=== PATIENT | female | born 1965 | race Caucasian/White ===

== ENCOUNTER 2016-08-23 12:03 | Day surgery (SDC) | payer BC ==
--- NOTE | 2016-08-23 13:20 | US ---
EXAMINATION TYPE: US thyroid st tissue head/neck DATE OF EXAM: 08/23/2016 1:05 PM COMPARISON: CT neck June 05, 2016. Prior thyroid ultrasound August 25, 2013 CLINICAL HISTORY: Swelling/ Mass of Neck R22.1. Patient states feeling a palpable lump on right later al anterior neck. Patient states she feels it behind a lymph node. TECHNOLOGIST IMPRESSION: Area of lump scanned. Normal appearing lymph nodes seen, largest - 0.4 cm. No prominent masses or lesions identified. Area of palpable lump shows 4 mm oval well-circumscribed lesion favoring benign lymph node but too sm all to definitively characterize. No worrisome solid or cystic mass or abnormal fluid collection is s een. IMPRESSION: As above
== END 2016-08-23 13:00 | disposition home or self-care (01) ==
LOC: RADPROMAIN 12:03
PROVIDERS: ATTEND Otolaryngology
DX: R22.1 Localized swelling, mass and lump, neck (principal)
CPT/HCPCS: 76536

== ENCOUNTER → 2016-11-30 | Outpatient (CLI) | payer BC ==
--- NOTE | 2016-11-30 13:49 | CT ---
EXAMINATION TYPE: CT soft tissue neck w con DATE OF EXAM: 11/30/2016 1:17 PM COMPARISON: NONE HISTORY: Swelling to anterior neck bilaterally. CT DLP: 521.00 mGycm Automated exposure control for dose reduction was used. CONTRAST: CT scan of the neck is performed following with IV Contrast, patient injected with 100 mL of Omnipaqu e 300. Axial images are obtained, coronal and sagittal reformatted images are reviewed. FINDINGS: Limited CT sections are obtained the lung apices. Emphysematous changes are noted. CT neck: The torus tubarius and fossa of Rosenmuller are normal. 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 Parana elder sinuses and mastoid air cells are clear. Parotid glands appear normal and symmetrical. Submandibu lar glands, are normal. Parapharyngeal spaces are normal. No lymphadenopathy is identified. No findin gs are identified which would suggest sialolithiasis however this is suboptimal and a contrast enhanc ed examination. The hypopharynx appears within normal limits. Vocal cord level appear symmetrical. Th yroid as visualized is normal. Cervical esophagus within the [id number] appears unremarkable. Osse ous structures are normal. The right vertebral artery is dominant. Evaluation of the mandible and max illa adjacent to the teeth is suboptimal due to adjacent hardware. IMPRESSIONS: Unremarkable soft tissue CT scan of the neck.
== END | disposition home or self-care (01) ==
LOC: RADCTMAIN 12:46
PROVIDERS: ATTEND Otolaryngology
DX: R22.1 Localized swelling, mass and lump, neck (principal)
CPT/HCPCS: 70491; Q9967

== ENCOUNTER → 2017-01-01 | Outpatient (CLI) | payer BC ==
--- NOTE | 2017-01-02 07:49 | MR ---
EXAMINATION TYPE: MR iac wo/w con DATE OF EXAM: 01/01/2017 COMPARISON: NONE HISTORY: hearing loss TECHNIQUE: Multiplanar, multisequence images of the brain and brainstem is performed without and with IV contras t, utilizing 12 mL intravenous MultiHance . FINDINGS: Midline structures are unremarkable. There is a normal craniocervical junction. Echoplanar diffusion imaging is normal. There are normal vascular flow voids. The orbits are normal. High-resolution imaging through the posterior fossa exquisitely demonstrates the seventh 8th nerve co mplexes without evidence of a CP angle mass lesion or intracanalicular acoustic schwannoma. No focal lesion, mass effect or midline shift is seen. I do not see evidence of intracranial blood. Following intravenous administration of gadolinium, I do not see evidence of abnormal enhancement. Sp ecifically, I do not see evidence of intracanalicular enhancement. IMPRESSION: I DO NOT SEE EVIDENCE OF A CP ANGLE MASS LESION OR INTRACANALICULAR ACOUSTIC SCHWANNOMA.
== END | disposition home or self-care (01) ==
LOC: RADMRIMAIN 15:49
PROVIDERS: ATTEND Otolaryngology
DX: H81.02 Meniere's disease, left ear (principal); H90.3 Sensorineural hearing loss, bilateral; H93.13 Tinnitus, bilateral
CPT/HCPCS: 70553; A9577

== ENCOUNTER → 2018-03-03 | Outpatient (CLI) | payer BC ==
--- NOTE | 2018-03-04 14:02 | MM ---
Reason for exam: screening (asymptomatic). Last mammogram was performed 1 year and 10 months ago. History: Benign left mammotome panel of the left breast, September 17, 2008. Benign right mammotome panel of the right breast, September 17, 2008. Benign cyst aspiration of the right breast, August 30, 1997. Took hormonal contraceptives for 10 years. Physical Findings: A clinical breast exam by your physician is recommended on an annual basis and results should be correlated with mammographic findings. MG 3D Screening Mammo W/Cad Bilateral CC and MLO view(s) were taken. Prior study comparison: May 07, 2016, bilateral MG 3d screening mammo w/cad. April 05, 2015, right breast MG 3d work up w/cad RT. The breast tissue is heterogeneously dense. This may lower the sensitivity of mammography. No significant changes when compared with prior studies. ASSESSMENT: Benign, BI-RAD 2 RECOMMENDATION: Routine screening mammogram of both breasts in 1 year.
== END | disposition home or self-care (01) ==
LOC: RADMAMWWP 13:20
PROVIDERS: ATTEND Family Medicine
DX: Z12.31 Encounter for screening mammogram for malignant neoplasm of breast (principal)
CPT/HCPCS: 77063; 77067

== ENCOUNTER → 2018-03-10 | Outpatient (CLI) | payer BC ==
--- NOTE | 2018-03-10 15:12 | FL ---
EXAMINATION TYPE: FL sialography DATE OF EXAM: 03/10/2018 HISTORY: K11.5 Sialolithiasis Comparison: None. Fluoroscopic time:1:58 fluoro time. Multiple attempts were made at localizing the opening of Katherin's duct bilaterally all of which prov ed unsuccessful. IMPRESSION: 1. Unsuccessful sialography of [place]'s duct.
== END | disposition home or self-care (01) ==
LOC: RADFLWHC 03-03 12:39
PROVIDERS: ATTEND Otolaryngology
DX: K11.5 Sialolithiasis (principal)
CPT/HCPCS: 70100; 70390

== ENCOUNTER → 2019-05-13 | Outpatient (CLI) | payer OTHER ==
--- NOTE | 2019-05-14 12:00 | MM ---
Reason for exam: screening (asymptomatic). Last mammogram was performed 1 year and 2 months ago. History: Benign left mammotome panel of the left breast, September 17, 2008. Benign right mammotome panel of the right breast, September 17, 2008. Benign cyst aspiration of the right breast, August 30, 1997. Took hormonal contraceptives for 10 years. Physical Findings: A clinical breast exam by your physician is recommended on an annual basis and results should be correlated with mammographic findings. MG Screening Mammo w CAD Bilateral CC and MLO view(s) were taken. Prior study comparison: March 03, 2018, bilateral MG 3d screening mammo w/cad. May 07, 2016, bilateral MG 3d screening mammo w/cad. The breast tissue is heterogeneously dense. This may lower the sensitivity of mammography. No suspicious abnormality. Bilateral biopsy markers noted. No significant changes when compared with prior studies. ASSESSMENT: Benign, BI-RAD 2 RECOMMENDATION: Routine screening mammogram of both breasts in 1 year.
== END | disposition home or self-care (01) ==
LOC: RADMAMWWP 09:42
PROVIDERS: ATTEND Family Medicine
DX: Z12.31 Encounter for screening mammogram for malignant neoplasm of breast (principal)
CPT/HCPCS: 77067

== ENCOUNTER → 2020-08-22 | Outpatient (CLI) | payer OTHER ==
--- NOTE | 2020-08-24 11:46 | MM ---
Reason for exam: screening (asymptomatic). Last mammogram was performed 1 year and 3 months ago. History: Patient is postmenopausal. Benign left mammotome panel of the left breast, September 17, 2008. Benign right mammotome panel of the right breast, September 17, 2008. Benign cyst aspiration of the right breast, August 30, 1997. Took hormonal contraceptives for 10 years. Physical Findings: A clinical breast exam by your physician is recommended on an annual basis and results should be correlated with mammographic findings. MG 3D Screening Mammo W/Cad Bilateral CC and MLO view(s) were taken. Prior study comparison: May 13, 2019, bilateral MG screening mammo w CAD. March 03, 2018, bilateral MG 3d screening mammo w/cad. Previous mammotome biopsy in the left breast. No significant changes when compared with prior studies. ASSESSMENT: Benign, BI-RAD 2 RECOMMENDATION: Routine screening mammogram of both breasts in 1 year.
== END ==
LOC: RADMAMWWP 13:12
PROVIDERS: ATTEND Family Medicine
DX: Z12.31 Encounter for screening mammogram for malignant neoplasm of breast (principal); Z78.0 Asymptomatic menopausal state
CPT/HCPCS: 77063; 77067

== ENCOUNTER → 2022-01-25 | Outpatient (CLI) | payer OTHER ==
--- NOTE | 2022-01-26 06:43 | CT ---
EXAMINATION TYPE: CT soft tissue neck wo con DATE OF EXAM: 01/25/2022 COMPARISON: CT neck November 30, 2016 HISTORY: Inflammatory conditions of the jaw, pre op CT DLP: 284 mGycm. Automated Exposure Control for Dose Reduction was Utilized. FINDINGS: Lack of IV contrast is noted to lower sensitivity for evaluation for subtle mucosal lesions and neck adenopathy. Airway: Mild underlying emphysematous change in the visualized lungs redemonstrated. Airway otherwise grossly patent Parotid/submandibular glands: No gross abnormality seen. Osseous Structures: Nasal septum deviated to left of midline similar to prior. There is some loss of normal cervical curvature with mild disc space narrowing C5-C6 and C6-C7 levels. There is prominent a nterior spurring C6-C7 level redemonstrated. Other: Partial visualization of right-sided PICC line on current study. There is small mucous retention cyst or polyp in the posterior right sphenoid sinus axial image 73 no w seen. Mild calcified plaque bilateral carotid bulb level. The mandible now shows lucent destructive lesion centered at the symphysis just left of midline axial image 44 and coronal image 8 extending through the nearly entire horizontal ramus with involvement t hrough the dental roots bilaterally. Multiple cavitary fillings and crowns in the maxillary and anay bular teeth bilaterally are noted with streak artifact. No definitive abnormal greater than 1 cm drea cent or neck adenopathy is seen. IMPRESSION: Destructive central mandibular lesion as detailed above. No definitive abnormal adenopath y seen. Airway remains patent.
== END | disposition home or self-care (01) ==
LOC: RADCTMAIN 16:47
PROVIDERS: ATTEND Otolaryngology
DX: M48.02 Spinal stenosis, cervical region (principal); J34.2 Deviated nasal septum; J43.9 Emphysema, unspecified
CPT/HCPCS: 70490

== ENCOUNTER → 2022-11-27 | Outpatient (CLI) | payer OTHER ==
--- NOTE | 2022-11-27 22:17 | BD ---
EXAMINATION TYPE: Axial Bone Density DATE OF EXAM: 11/27/2022 CLINICAL HISTORY: 57 years old Female. ICD-10 CODE: N959 POSTTata MCKEONO Height: 62 Weight: 149.2 FRAX RISK QUESTIONS: Alcohol (3 or more units per day): no Family History (Parent hip fracture): no Glucocorticoids (More than 3mos): no History of Fracture in Adulthood: no Secondary Osteoporosis: 1. Type 1 Diabetes: no 2. Hyperthyroidism: no 3. Menopause before 45: yes 4. Malnutrition: no 5. Chronic liver disease: no Rheumatoid Arthritis: no Current Tobacco Use: yes RISK FACTORS HISTORY OF: Hip Fracture (Right/Left): no Spine Fracture: no History of Wrist Fracture: no Surgery to Spine/Hip(right/left)/Wrist (right/left): Lumbar Spine Fusion at each level When: 2010 Family History of Osteoporosis: Maternal Grandmother Active: no Diet low in dairy products/other sources of calcium: no Postmenopausal woman: no Take estrogen and/or progesterone medications: no Lost more than 2 inches in height since high school: yes Frequent falls: no Poor Health: no Hyperparathyroidism: no Adrenal Insufficiency: no MEDICATIONS: Prednisone or other steroids: no Thyroid Medications: no Osteoporosis Medications: no Additional Medications: Pepcid, Vit D, Fish Oil Additional History: EXAM MEASUREMENTS: Bone mineral density about the R hip (g/cm2): 0.902 Bone mineral density about the L hip (g/cm2): 0.818 T Score values are as follows: -----R Neck: -1.1 -----L Neck: -1.6 -----R Total: -0.8 -----L Total: -1.5 Z Score values are as follows: -----R Neck: 0.0 -----L Neck: -0.5 -----R Total: -0.1 -----L Total: -0.7 Baseline Study Bone mineral density about the R Wrist (g/cm2): 0.635 T Score values are as follows: -----Dist. R+U: -1.2 -----Prox. R+U: -0.6 -----Radius total: -0.7 Z Score values are as follows: -----Dist. R+U: -0.5 -----Prox. R+U: 0.2 -----Radius total: 0.1 Baseline Study FRAX%s: The graph provided illustrates a 8.0% chance for a major osteoporotic fx and a 1.2% chance fo r the hips probability for fx in 10 years time. IMPRESSION: Osteopenia (T Score between -2.5 and -1). There is slightly increased risk of fracture and the patient may be considered for treatment. Re-Screen 2-5 years. NOTE: T-SCORE=SD OF THE YOUNG ADULT MEAN.
--- NOTE | 2022-11-28 20:16 | MM ---
Reason for Exam: Screening (asymptomatic). Last mammogram was performed 2 year(s) and 3 month(s) ago. Patient History: Menarche at age 11. First Full-Term at age 23. Hysterectomy at age 30. Postmenopausal. Patient used Hormonal Contraceptives for 10 years. 09/17/2008, Benign Core Biopsy on the left side. 09/17/2008, Benign Core Biopsy on the right side. 08/30/1997, Benign Cyst Aspiration on the right side. Risk Values: Moon 5 year model risk: 1.8%. NCI Lifetime model risk: 10.2%. Prior Study Comparison: 03/03/2018 Bilateral Screening Mammogram, [facility]. 05/13/2019 Bilateral Screening Mammogram, [facility]. 08/22/2020 Bilateral Screening Mammogram, [facility]. Tissue Density: The breast tissue is heterogeneously dense. This may lower the sensitivity of mammography. Findings: Analyzed By CAD. Regional punctate calcifications are redemonstrated. Areas of asymmetric density left CC view remain unchanged and show no persisting abnormality on 3-D images. A microclip on either side from prior biopsies. There is no suspicious group of microcalcifications or new suspicious mass in either breast. Overall Assessment: Benign, BI-RAD 2 Management: Screening Mammogram of both breasts in 1 year. . Patient should continue monthly self-breast exams. A clinical breast exam by your physician is recommended on an annual basis. This exam should not preclude additional follow-up of suspicious palpable abnormalities. Note on Moon scores and lifetime risk: 1. A Moon score greater than 3% is considered moderate risk. If this is the case, consider specialist referral to assess eligibility for a risk reducing agent. 2. If overall lifetime risk for the development of breast cancer is 20% or higher, the patient may qualify for future screening with alternating mammogram and breast MRI. Electronically signed and approved by: Stephanie Bailey M.D. Radiologist
== END | disposition home or self-care (01) ==
LOC: RADMAMWWP 12:38
PROVIDERS: ATTEND Student in an Organized Health Care Education/Training Program
DX: Z12.31 Encounter for screening mammogram for malignant neoplasm of breast (principal); M85.89 Other specified disorders of bone density and structure, multiple sites; Z78.0 Asymptomatic menopausal state
CPT/HCPCS: 77063; 77067; 77080

== ENCOUNTER → 2023-03-13 | Outpatient (CLI) | payer OTHER ==
[2023-03-13 14:32] VITALS: BP 120/80; PULSE 92; RESP 16; TEMP 97
--- NOTE | 2023-03-13 14:43 | P.PAINPG ---
PQRS Measure Charge Sheet Comment: HISTORY OF PRESENT ILLNESS: 57 yr old female as a referral from Dr Cullen presents today w severe and chronic jaw & neck pain x 6 yrs secondary to DDD, spondylosis and facet arthropathy without myelopathy for evaluation. Pt states pain level is provoked at 6 /10 in intensity, constant, localized in the jaw, throbbing in character w shooting pain towards the chin. Pain is provoked by any movement. Pain is alleviated by medications (Percocet, Neurontin), repositioning and rest. PMH: OA, Hypothyroid Disorder, Diverticulitis, Meniere's disease, anxiety PSH: L2-L5 Laminectomy w Fusion (2016), Bowel Resection, Hernia Repair, Hysterectomy, Breast Biopsy, R Shoulder Surgery, Jaw Surgery SH: Daily tobacco use, No ETOH abuse, No illicit drug use FH: Mo- Lymphoma All: See list Meds: See list REVIEW OF ORGAN SYSTEMS: CONSTITUTIONAL: No fevers or chills. No recent weight loss. NEUROLOGICAL: + numbness and tingling along the distal extremities. No seizure disorders or headaches. MUSCULOSKELETAL: + pain PSYCHIATRIC: Denies current depression or suicidal thoughts. Physical Examinations : Constitutional : Cooperative , not in acute distress . Neurologic : Cranial nerve II to XII intact. No focal neurological deficits. Psychiatric : alert & oriented x 3. Matching mood & appropriate affect. Judgment & insight intact. Musculoskeletal : Cervical Spine Motor strength in the deltoid and biceps: Normal right side. Normal Left side Motor strength biceps and the wrist extensors: Normal right side . Normal left side Motor strength in the triceps muscle: Normal right side. Normal left side Deep tendon reflexes: Normal at the biceps. Normal at Brachioradialis. Normal at triceps Vertebral body tenderness to deep palpation over Cervical facet loading test: positive bilaterally Spurling test: positive bilaterally Neck distraction test: positive bilaterally Sulaiman sign: positive bilaterally Lumbar spine Motor strength lower extremities ,thigh and legs 5/5 Right side , 5/5 Left side Deep tendon reflexes : Normal Knee Jerk. Normal Ankle Jerk Vertebral body tenderness over Ahmadi Test positive Lumbar facet Loading Test: positive R ight / positive Left Range of motion of the lumbar spine Flexion 30 degrees, extension 10 degrees Straight Leg Raise test: Left/ Right positive at degree Carolina test: positive right / positive left. Severe tenderness over the Sacroiliac joint on the Right / Left sides Gaenslen test: positive bilaterally Seated flexion test: positive bilaterally. Sacral spine : Severe tenderness over the Sacroiliac joint: right side / left side Range of motion: Flexion of the lumbar spine <60 degrees Range of motion: Extension of the lumbar spine <20 degrees Gaenslen's Test positive Manuel's Test positive Carolina test: positive right side / left side Thigh Thrust Test Sacral Thrust Test Imaging: X-rays cervical spine from 11/22/16 reviewed Assessment/ Plan : Cervical DDD Pt could benefit from follow up w Oral Surgery but does not appear to be interested at this time Will followup w physicians on a list she received from Dr Cullen's office. All questions answered. I have spent greater than 30 minutes on patient care today. Dr Fritz was available by phone for the evaluation of this patient. The time was used to review the medical records including relevant urine studies and Prescription history (MAPs), review of the available imaging, evaluation and examination of the patient, coordination of care with the medical staff and if applicable referring physicians, as well as creation of the medical record PQRS Narrative: Smoking Status Current every day smoker Home Medications: Ambulatory Orders Gabapentin [Neurontin] 600 mg PO HS 01/26/14 LORazepam [Ativan] 1 mg PO BID 08/15/16 Azithromycin [Zithromax Z-pack (6 tabs)] 0 mg PO DIRECTED #1 pack 04/12/17 Famotidine [Pepcid] 20 mg PO BID #28 tablet 04/12/17 hydrOXYzine HCL [Atarax] 25 mg PO TID PRN #15 tab 04/12/17 oxyCODONE-APAP 10-325MG [Percocet 10-325 mg] 1 tab PO TID PRN 04/12/17 Controlled Substance Measures - Controlled Substance Measures Is patient prescribed a controlled substance at discharge?: No
== END ==
LOC: PNWHC3 13:22
PROVIDERS: ATTEND Specialist
DX: M51.36 Other intervertebral disc degeneration, lumbar region (principal); M50.30 Other cervical disc degeneration, unspecified cervical region; M19.90 Unspecified osteoarthritis, unspecified site; E07.9 Disorder of thyroid, unspecified; F17.200 Nicotine dependence, unspecified, uncomplicated; F41.9 Anxiety disorder, unspecified; Z87.19 Personal history of other diseases of the digestive system; Z86.19 Personal history of other infectious and parasitic diseases; Z88.0 Allergy status to penicillin; Z88.8 Allergy status to other drugs, medicaments and biological substances; Z88.5 Allergy status to narcotic agent; Z88.2 Allergy status to sulfonamides
CPT/HCPCS: 99211

== ENCOUNTER → 2023-05-15 | Outpatient (CLI) | payer OTHER ==
--- NOTE | 2023-05-15 14:14 | P.PAINPG ---
PQRS Measure Charge Sheet Comment: HISTORY OF PRESENT ILLNESS: A 57 yr old female presents today w severe and chronic jaw pain x 6 yrs secondary to mandible fracture and metal hardware for evaluation. Pt states pain level is provoked at 6 /10 in intensity, constant, localized in the jaw, throbbing in character w shooting pain towards the chin. Pain is provoked by any movement. Pain is alleviated by medications, repositioning and rest. Interventional procedures include Jaw Fixation (2017) Medications include Percocet 10/325mg #120, Neurontin REVIEW OF ORGAN SYSTEMS: CONSTITUTIONAL: No fevers or chills. No recent weight loss. NEUROLOGICAL: + numbness and tingling along the distal extremities. No seizure disorders or headaches. MUSCULOSKELETAL: + pain PSYCHIATRIC: Denies current depression or suicidal thoughts. Physical Examinations : Constitutional : Cooperative , not in acute distress . Neurologic : Cranial nerve II to XII intact. No focal neurological deficits. Psychiatric : alert & oriented x 3. Matching mood & appropriate affect. Judgment & insight intact. Musculoskeletal : Cervical Spine Motor strength in the deltoid and biceps: Normal right side. Normal Left side Motor strength biceps and the wrist extensors: Normal right side . Normal left side Motor strength in the triceps muscle: Normal right side. Normal left side Deep tendon reflexes: Normal at the biceps. Normal at Brachioradialis. Normal at triceps Vertebral body tenderness to deep palpation over Cervical facet loading test: positive bilaterally Spurling test: positive bilaterally Neck distraction test: positive bilaterally Sulaiman sign: positive bilaterally Lumbar spine Motor strength lower extremities ,thigh and legs 5/5 Right side , 5/5 Left side Deep tendon reflexes : Normal Knee Jerk. Normal Ankle Jerk Vertebral body tenderness over Ahmadi Test positive Lumbar facet Loading Test: positive Right / positive Left Range of motion of the lumbar spine Flexion 30 degrees, extension 10 degrees Straight Leg Raise test: Left/ Right positive at degree Carolina test: positive right / positive left. Severe tenderness over the Sacroiliac joint on the Right / Left sides Gaenslen test: positive bilaterally Seated flexion test: positive bilaterally. Sacral spine : Severe tenderness over the Sacroiliac joint: right side / left side Range of motion: Flexion of the lumbar spine <60 degrees Range of motion: Extension of the lumbar spine <20 degrees Gaenslen's Test positive Manuel's Test positive Carolina test: positive right side / left side Thigh Thrust Test Sacral Thrust Test Imaging: X-rays cervical spine from 11/22/16 reviewed Assessment/ Plan : Chronic Jaw Pain secondary to Mandible Fixation due to fracture Pt has followed up w the only oral surgeon on the area, Dr Sow for a second opinion and her oral surgeon is located at [facility] in [place], > [address] for pt. Recommendation of medication management at this time for chronic pain syndrome. Percocet 10/325mg #120 w 1 RF. Use, side effects, adverse reactions and safe storage discussed. Opiate and narcotic agreement on file. All questions answered. I have spent greater than 30 minutes on patient care today. Dr Fritz was available by phone for the evaluation of this patient. The time was used to review the medical records including relevant urine studies and Prescription history (MAPs), review of the available imaging, evaluation and examination of the patient, coordination of care with the medical staff and if applicable referring physicians, as well as creation of the medical record PQRS Narrative: Smoking Status Current every day smoker Home Medications: Ambulatory Orders Gabapentin [Neurontin] 600 mg PO HS 01/26/14 LORazepam [Ativan] 1 mg PO BID 08/15/16 Azithromycin [Zithromax Z-pack (6 tabs)] 0 mg PO DIRECTED #1 pack 04/12/17 Famotidine [Pepcid] 20 mg PO BID #28 tablet 04/12/17 hydrOXYzine HCL [Atarax] 25 mg PO TID PRN #15 tab 04/12/17 oxyCODONE-APAP 10-325MG [Percocet 10-325 mg] 1 tab PO QID PRN 30 Days #120 tab 03/14/23 Controlled Substance Measures - Controlled Substance Measures Is patient prescribed a controlled substance at discharge?: Yes When asked, does pt state using other controlled substances?: Yes If prescribed controlled substance>3 days was MAPS reviewed?: Yes
[2023-05-15 14:41] VITALS: BP 127/86; PULSE 55; RESP 15; TEMP 98.8
== END ==
LOC: PNWHC3 13:41
PROVIDERS: ATTEND Specialist
DX: Z51.81 Encounter for therapeutic drug level monitoring (principal); G89.29 Other chronic pain; S02.609A Fracture of mandible, unspecified, initial encounter for closed fracture; F17.200 Nicotine dependence, unspecified, uncomplicated; Z88.0 Allergy status to penicillin; Z88.8 Allergy status to other drugs, medicaments and biological substances; Z88.5 Allergy status to narcotic agent; Z88.2 Allergy status to sulfonamides; X58.XXXA Exposure to other specified factors, initial encounter
CPT/HCPCS: 80307; G0463; 99211

== ENCOUNTER → 2023-07-10 | Outpatient (CLI) | payer OTHER ==
[2023-07-10 13:22] VITALS: BP 97/64; PULSE 86; RESP 15; TEMP 97.2
--- NOTE | 2023-07-10 14:44 | P.PAINPG ---
PQRS Measure Charge Sheet Comment: HISTORY OF PRESENT ILLNESS: A 58 yr old female presents today w severe and chronic jaw pain x 6 yrs secondary to mandible fracture and metal hardware for evaluation. Pt states pain level is provoked at 6 /10 in intensity, constant, localized in the jaw, crushing in character w shooting pain towards the chin. Pain is provoked by any movement. Pain is alleviated by medications, repositioning and rest. Interventional procedures include Jaw Fixation (2017) Medications include Percocet 10/325mg #120, Neurontin REVIEW OF ORGAN SYSTEMS: CONSTITUTIONAL: No fevers or chills. No recent weight loss. NEUROLOGICAL: + numbness and tingling along the distal extremities. No seizure disorders or headaches. MUSCULOSKELETAL: + pain PSYCHIATRIC: Denies current depression or suicidal thoughts. Physical Examinations : Constitutional : Cooperative , not in acute distress . Neurologic : Cranial nerve II to XII intact. No focal neurological deficits. Psychiatric : alert & oriented x 3. Matching mood & appropriate affect. Judgment & insight intact. Musculoskeletal : Cervical Spine Motor strength in the deltoid and biceps: Normal right side. Normal Left side Motor strength biceps and the wrist extensors: Normal right side . Normal left side Motor strength in the triceps muscle: Normal right side. Normal left side Deep tendon reflexes: Normal at the biceps. Normal at Brachioradialis. Normal at triceps Vertebral body tenderness to deep palpation over Cervical facet loading test: positive bilaterally Spurling test: positive bilaterally Neck distraction test: positive bilaterally Sulaiman sign: positive bilaterally Lumbar spine Motor strength lower extremities ,thigh and legs 5/5 Right side , 5/5 Left side Deep tendon reflexes : Normal Knee Jerk. Normal Ankle Jerk Vertebral body tenderness over Ahmadi Test positive Lumbar facet Loading Test: positive Right / positive Left Range of motion of the lumbar spine Flexion 30 degrees, extension 10 degrees Straight Leg Raise test: Left/ Right positive at degree Carolina test: positive right / positive left. Severe tenderness over the Sacroiliac joint on the Right / Left sides Gaenslen test: positive bilaterally Seated flexion test: positive bilaterally. Sacral spine : Severe tenderness over the Sacroiliac joint: right side / left side Range of motion: Flexion of the lumbar spine <60 degrees Range of motion: Extension of the lumbar spine <20 degrees Gaenslen's Test positive Manuel's Test positive Carolina test: positive right side / left side Thigh Thrust Test Sacral Thrust Test Imaging: X-rays cervical spine from 11/22/16 reviewed Assessment/ Plan : Chronic Jaw Pain secondary to Mandible Fixation due to fracture Recommendation of medication management at this time for chronic pain syndrome. Percocet 10/325mg #120 w 1 RF. Use, side effects, adverse reactions and safe storage discussed. Opiate and narcotic agreement on file. All questions an swered. I have spent greater than 30 minutes on patient care today. Dr Fritz was available by phone for the evaluation of this patient. The time was used to review the medical records including relevant urine studies and Prescription history (MAPs), review of the available imaging, evaluation and examination of the patient, coordination of care with the medical staff and if applicable referring physicians, as well as creation of the medical record PQRS Narrative: Smoking Status Current every day smoker Hx Alcohol Use (MH) No Home Medications: Ambulatory Orders Gabapentin [Neurontin] 600 mg PO HS 01/26/14 LORazepam [Ativan] 1 mg PO BID 08/15/16 Azithromycin [Zithromax Z-pack (6 tabs)] 0 mg PO DIRECTED #1 pack 04/12/17 Famotidine [Pepcid] 20 mg PO BID #28 tablet 04/12/17 hydrOXYzine HCL [Atarax] 25 mg PO TID PRN #15 tab 04/12/17 oxyCODONE-APAP 10-325MG [Percocet 10-325 mg] 1 tab PO Q6HR PRN 30 Days #120 tab 05/15/23 oxyCODONE-APAP 10-325MG [Percocet 10-325 mg] 1 tab PO QID PRN 30 Days #120 tab 05/15/23 Controlled Substance Measures - Controlled Substance Measures Is patient prescribed a controlled substance at discharge?: Yes When asked, does pt state using other controlled substances?: Yes If prescribed controlled substance>3 days was MAPS reviewed?: Yes
== END ==
LOC: PNWHC3 12:27
PROVIDERS: ATTEND Anesthesiology
DX: S02.609A Fracture of mandible, unspecified, initial encounter for closed fracture (principal); R68.84 Jaw pain; F17.200 Nicotine dependence, unspecified, uncomplicated; Z88.0 Allergy status to penicillin; Z88.8 Allergy status to other drugs, medicaments and biological substances; Z88.2 Allergy status to sulfonamides; Z88.1 Allergy status to other antibiotic agents
CPT/HCPCS: 99211

== ENCOUNTER → 2023-08-28 | Outpatient (CLI) | payer OTHER ==
--- NOTE | 2023-08-28 13:43 | CT ---
EXAMINATION TYPE: CT facial bones wo con CT DLP: 583 mGycm, Automated exposure control for dose reduction was used. DATE OF EXAM: 08/28/2023 1:30 PM COMPARISON: CT neck 07/23/2022. CLINICAL INDICATION:Female, 58 years old with history of JAW PAIN R68.84; PHH, left sided jaw pain TECHNIQUE: Multiple unenhanced axial CT images were obtained of the facial bones soft tissue and bone windows. Coronal, axial and sagittal reformatted images were also provided in soft tissue and bone windows and submitted for interpretation. Additional 3-D reformatted images were obtained on a [employer] workstation. FINDINGS: There is no evidence of fracture, subluxation, dislocation, or significant soft tissue swelling. Postsurgical changes of the mandible are again identified with scattered metallic foci noted within t he submental soft tissues, overall stable appearance. Hardware is intact. There is redemonstrated wayne encies involving the lower anterior teeth, not significantly changed in the interval. The orbital contents are unremarkable. The temporal-mandibular joints appear symmetric. The visualized portion of the paranasal sinuses appe ar clear. IMPRESSION: Stable exam demonstrating postsurgical changes of the mandible and periapical lucencies of the lower anterior disease. No evidence of soft tissue abscess.
== END | disposition home or self-care (01) ==
LOC: RADCTMAIN 13:07
DX: R68.84 Jaw pain (principal)
CPT/HCPCS: 70486

== ENCOUNTER → 2023-09-04 | Outpatient (CLI) | payer OTHER ==
[~2023-09-04] MED LIST: KETOROLAC 30 MG/ML 1 ML VIAL IM ONE
[2023-09-04 13:25] VITALS: BP 125/93; PULSE 84; RESP 16; TEMP 98.2
--- NOTE | 2023-09-11 10:46 | P.PAINPG ---
PQRS Measure Charge Sheet Comment: HISTORY OF PRESENT ILLNESS: A 58 yr old female presents today w severe and chronic jaw pain x 6 yrs secondary to mandible fracture and metal hardware for evaluation. Pt states pain level is provoked at 9 /10 in intensity, constant, localized in the jaw, crushing in character w shooting pain towards the chin. Pain is provoked by any movement. Pain is alleviated by medications, repositioning and rest. Pt feels intense pain and would like an injection today for pain relief. Interventional procedures include Jaw Fixation (2017) Medications include Percocet 10/325mg #120, Neurontin REVIEW OF ORGAN SYSTEMS: CONSTITUTIONAL: No fevers or chills. No recent weight loss. NEUROLOGICAL: + numbness and tingling along the distal extremities. No seizure disorders or headaches. MUSCULOSKELETAL: + pain PSYCHIATRIC: Denies current depression or suicidal thoughts. Physical Examinations : Constitutional : Cooperative , not in acute distress . Neurologic : Cranial nerve II to XII intact. No focal neurological deficits. Psychiatric : alert & oriented x 3. Matching mood & appropriate affect. Judgment & insight intact. Musculoskeletal : Cervical Spine Motor strength in the deltoid and biceps: Normal right side. Normal Left side Motor strength biceps and the wrist extensors: Normal right side . Normal left side Motor strength in the triceps muscle: Normal right side. Normal left side Deep tendon reflexes: Normal at the biceps. Normal at Brachioradialis. Normal at triceps Vertebral body tenderness to deep palpation over Cervical facet loading test: positive bilaterally Spurling test: positive bilaterally Neck distraction test: positive bilaterally Sulaiman sign: positive bilaterally Lumbar spine Motor strength lower extremities ,thigh and legs 5/5 Right side , 5/5 Left side Deep tendon reflexes : Normal Knee Jerk. Normal Ankle Jerk Vertebral body tenderness over Ahmadi Test positive Lumbar facet Loading Test: positive Right / positive Left Range of motion of the lumbar spine Flexion 30 degrees, extension 10 degrees Straight Leg Raise test: Left/ Right positive at degree Carolina test: positive right / positive left. Severe tenderness over the Sacroiliac joint on the Right / Left sides Gaenslen test: positive bilaterally Seated flexion test: positive bilat erally. 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 Percocet 10/325mg #120 w 1 RF. Use, side effects, adverse reactions and safe storage discussed. Opiate and narcotic agreement on file. UDS from 05/15/23 reviewed and consistent. All questions answered. I have spent greater than 30 minutes on patient care today. Dr Fritz was available by phone for the evaluation of this patient. The time was used to review the medical records including relevant urine studies and Prescription history (MAPs), review of the available imaging, evaluation and examination of the patient, coordination of care with the medical staff and if applicable referring physicians, as well as creation of the medical record PQRS Narrative: Smoking Status Current every day smoker Hx Alcohol Use (MH) No Home Medications: Ambulatory Orders Gabapentin [Neurontin] 600 mg PO HS 01/26/14 LORazepam [Ativan] 1 mg PO BID 08/15/16 Azithromycin [Zithromax Z-pack (6 tabs)] 0 mg PO DIRECTED #1 pack 04/12/17 Famotidine [Pepcid] 20 mg PO BID #28 tablet 04/12/17 hydrOXYzine HCL [Atarax] 25 mg PO TID PRN #15 tab 04/12/17 oxyCODONE-APAP 10-325MG [Percocet 10-325 mg] 1 tab PO Q6HR PRN 30 Days #120 tab 09/04/23 oxyCODONE-APAP 10-325MG [Percocet 10-325 mg] 1 tab PO QID PRN 30 Days #120 tab 09/04/23 Controlled Substance Measures - Controlled Substance Measures Is patient prescribed a controlled substance at discharge?: Yes When asked, does pt state using other controlled substances?: Yes If prescribed controlled substance>3 days was MAPS reviewed?: Yes
== END ==
LOC: PNWHC3 12:18
PROVIDERS: ATTEND Specialist
DX: M26.619 Adhesions and ankylosis of temporomandibular joint, unspecified side (principal); Z53.9 Procedure and treatment not carried out, unspecified reason
CPT/HCPCS: 99211

== ENCOUNTER → 2023-10-07 | Outpatient (CLI) | payer OTHER ==
--- NOTE | 2023-10-10 15:54 | CT ---
EXAMINATION TYPE: CT soft tissue neck w con DATE OF EXAM: 10/07/2023 COMPARISON: 07/23/2022 HISTORY: post-op jaw sx CT DLP: 274 mGycm CONTRAST: Patient injected with 100 mL of Isovue 300. TECHNIQUE: Axial images at 3 mm thick sections. Reconstructed images in the coronal plane and sagitt al plane are reviewed. FINDINGS: Limited CT sections are obtained the lung apices. The lung apices appear clear. CT neck: The torus tubarius and fossa of Rosenmuller are normal. Forensic Technician spaces are normal. Para nasal sinuses and mastoid air cells are clear. Parotid glands appear normal and symmetrical. Left submandibular gland appears normal. Right submandi bular gland may be surgically absent. Parapharyngeal spaces are normal. No suspicious adenopathy is evident. The hypopharynx appears within normal limits. Vocal cord level appear symmetrical. Thyroid as visualized is normal. Postsurgical changes are through the mandible. No suspicious erosions are evident. There is anterior vertebral body spurring C6-7. IMPRESSION: 1. Postsurgical changes within the mandible. No acute osseous abnormality.
== END | disposition home or self-care (01) ==
LOC: RADCTMAIN 12:25
PROVIDERS: ATTEND Otolaryngology
DX: M87.88 Other osteonecrosis, other site (principal); Z98.890 Other specified postprocedural states
CPT/HCPCS: 70491; Q9967

== ENCOUNTER → 2023-10-31 | Outpatient (CLI) | payer OTHER ==
[2023-10-31 13:08] VITALS: BP 127/85; PULSE 87; RESP 16
--- NOTE | 2023-10-31 14:52 | P.PAINPG ---
PQRS Measure Charge Sheet Comment: HISTORY OF PRESENT ILLNESS: A 58 yr old female presents today w severe and chronic jaw pain x 6 yrs secondary to mandible fracture and metal hardware for evaluation. Pt states pain level is provoked at 9 /10 in intensity, constant, localized in the jaw, crushing in character w shooting pain towards the chin. Pain is provoked by any movement. Pain is alleviated by medications, repositioning and rest. Pt feels intense pain and would like an injection today for pain relief. Interventional procedures include Jaw Fixation (2017) Medications include Percocet 10/325mg #120, Neurontin REVIEW OF ORGAN SYSTEMS: CONSTITUTIONAL: No fevers or chills. No recent weight loss. NEUROLOGICAL: + numbness and tingling along the distal extremities. No seizure disorders or headaches. MUSCULOSKELETAL: + pain PSYCHIATRIC: Denies current depression or suicidal thoughts. Physical Examinations : Constitutional : Cooperative , not in acute distress . Neurologic : Cranial nerve II to XII intact. No focal neurological deficits. Psychiatric : alert & oriented x 3. Matching mood & appropriate affect. Judgment & insight intact. Musculoskeletal : Cervical Spine Motor strength in the deltoid and biceps: Normal right side. Normal Left side Motor strength biceps and the wrist extensors: Normal right side . Normal left side Motor strength in the triceps muscle: Normal right side. Normal left side Deep tendon reflexes: Normal at the biceps. Normal at Brachioradialis. Normal at triceps Vertebral body tenderness to deep palpation over Cervical facet loading test: positive bilaterally Spurling test: positive bilaterally Neck distraction test: positive bilaterally Sulaiman sign: positive bilaterally Lumbar spine Motor strength lower extremities ,thigh and legs 5/5 Right side , 5/5 Left side Deep tendon reflexes : Normal Knee Jerk. Normal Ankle Jerk Vertebral body tenderness over Ahmadi Test positive Lumbar facet Loading Test: positive Right / positive Left Range of motion of the lumbar spine Flexion 30 degrees, extension 10 degrees Straight Leg Raise test: Left/ Right positive at degree [place] test: positive right / positive left. Severe tenderness over the Sacroiliac joint on the Right / Left sides Gaenslen test: positive bilaterally Seated flexion test: positive bilat erally. 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 Percocet 10/325mg #120 w 1 RF. Use, side effects, adverse reactions and safe storage discussed. Opiate and narcotic agreement on file. UDS from 05/15/23 reviewed and consistent. All questions answered. I have spent greater than 30 minutes on patient care today. Dr Fritz was available by phone for the evaluation of this patient. The time was used to review the medical records including relevant urine studies and Prescription history (MAPs), review of the available imaging, evaluation and examination of the patient, coordination of care with the medical staff and if applicable referring physicians, as well as creation of the medical record PQRS Narrative: Smoking Status Current every day smoker Hx Alcohol Use (MH) No Home Medications: Ambulatory Orders Gabapentin [Neurontin] 600 mg PO HS 01/26/14 LORazepam [Ativan] 1 mg PO BID 08/15/16 Azithromycin [Zithromax Z-pack (6 tabs)] 0 mg PO DIRECTED #1 pack 04/12/17 Famotidine [Pepcid] 20 mg PO BID #28 tablet 04/12/17 hydrOXYzine HCL [Atarax] 25 mg PO TID PRN #15 tab 04/12/17 oxyCODONE-APAP 10-325MG [Percocet 10-325 mg] 1 tab PO Q6HR PRN 30 Days #120 tab 10/31/23 oxyCODONE-APAP 10-325MG [Percocet 10-325 mg] 1 tab PO QID PRN 30 Days #120 tab 10/31/23 Controlled Substance Measures - Controlled Substance Measures Is patient prescribed a controlled substance at discharge?: Yes When asked, does pt state using other controlled substances?: Yes If prescribed controlled substance>3 days was MAPS reviewed?: Yes
== END ==
LOC: PNWHC3 12:21
PROVIDERS: ATTEND Specialist
DX: S02.609A Fracture of mandible, unspecified, initial encounter for closed fracture (principal); M26.609 Unspecified temporomandibular joint disorder, unspecified side; M47.816 Spondylosis without myelopathy or radiculopathy, lumbar region; G89.29 Other chronic pain; F17.200 Nicotine dependence, unspecified, uncomplicated; Z88.0 Allergy status to penicillin; Z88.8 Allergy status to other drugs, medicaments and biological substances; Z88.5 Allergy status to narcotic agent; Z88.2 Allergy status to sulfonamides; X58.XXXA Exposure to other specified factors, initial encounter
CPT/HCPCS: 99211

== ENCOUNTER → 2023-12-26 | Outpatient (CLI) | payer OTHER ==
[2023-12-26 13:27] VITALS: BP 125/93; PULSE 81; RESP 16
--- NOTE | 2023-12-26 14:16 | P.PAINPG ---
PQRS Measure Charge Sheet Comment: HISTORY OF PRESENT ILLNESS: A 58 yr old female presents today w severe and chronic jaw pain x 6 yrs secondary to mandible fracture and metal hardware for medication refills. Pt states pain level is provoked at 6 /10 in intensity, constant, localized in the jaw, crushing in character w shooting pain towards the chin. Pain is provoked by any movement. Pain is alleviated by medications, repositioning and rest. Interventional procedures include Jaw Fixation (2017) Medications include Percocet 10/325mg #120, Neurontin 300mg #90 REVIEW OF ORGAN SYSTEMS: CONSTITUTIONAL: No fevers or chills. No recent weight loss. NEUROLOGICAL: + numbness and tingling along the distal extremities. No seizure disorders or headaches. MUSCULOSKELETAL: + pain PSYCHIATRIC: Denies current depression or suicidal thoughts. Physical Examinations : Constitutional : Cooperative , not in acute distress . Neurologic : Cranial nerve II to XII intact. No focal neurological deficits. Psychiatric : alert & oriented x 3. Matching mood & appropriate affect. Judgment & insight intact. Musculoskeletal : Cervical Spine Motor strength in the deltoid and biceps: Normal right side. Normal Left side Motor strength biceps and the wrist extensors: Normal right side . Normal left side Motor strength in the triceps muscle: Normal right side. Normal left side Deep tendon reflexes: Normal at the biceps. Normal at Brachioradialis. Normal at triceps Vertebral body tenderness to deep palpation over Cervical facet loading test: positive bilaterally Spurling test: positive bilaterally Neck distraction test: positive bilaterally Sulaiman sign: positive bilaterally Lumbar spine Motor strength lower extremities ,thigh and legs 5/5 Right side , 5/5 Left side Deep tendon reflexes : Normal Knee Jerk. Normal Ankle Jerk Vertebral body tenderness over Ahmadi Test positive Lumbar facet Loading Test: positive Right / positive Left Range of motion of the lumbar spine Flexion 30 degrees, extension 10 degrees Straight Leg Raise test: Left/ Right positive at degree [place] test: positive right / positive left. Severe tenderness over the Sacroiliac joint on the Right / Left sides Gaenslen test: positive bilaterally Seated flexion test: positive bilaterally. 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 Percocet 10/325mg #120 w 1 RF. Use, side effects, adverse reactions and safe storage discussed. Opiate and narcotic agreement on file. UDS collected 12/26/23. All questions answered. I have spent greater than 30 minutes on patient care today. Dr Fritz was available by phone for the evaluation of this patient. The time was used to review the medical records including relevant urine studies and Prescription history (MAPs), review of the available imaging, evaluation and examination of the patient, coordination of care with the medical staff and if applicable referring physicians, as well as creation of the medical record PQRS Narrative: Smoking Status Current every day smoker Hx Alcohol Use (MH) No Home Medications: Ambulatory Orders Gabapentin [Neurontin] 600 mg PO HS 01/26/14 LORazepam [Ativan] 1 mg PO BID 08/15/16 Azithromycin [Zithromax Z-pack (6 tabs)] 0 mg PO DIRECTED #1 pack 04/12/17 Famotidine [Pepcid] 20 mg PO BID #28 tablet 04/12/17 hydrOXYzine HCL [Atarax] 25 mg PO TID PRN #15 tab 04/12/17 oxyCODONE-APAP 10-325MG [Percocet 10-325 mg] 1 tab PO Q6HR PRN 30 Days #120 tab 12/26/23 oxyCODONE-APAP 10-325MG [Percocet 10-325 mg] 1 tab PO QID PRN 30 Days #120 tab 12/26/23 Controlled Substance Measures - Controlled Substance Measures Is patient prescribed a controlled substance at discharge?: Yes When asked, does pt state using other controlled substances?: No If prescribed controlled substance>3 days was MAPS reviewed?: Yes
== END ==
LOC: PNWHC3 12:36
PROVIDERS: ATTEND Specialist
DX: S02.600A Fracture of unspecified part of body of mandible, unspecified side, initial encounter for closed fracture (principal); M26.609 Unspecified temporomandibular joint disorder, unspecified side; F17.200 Nicotine dependence, unspecified, uncomplicated; Z88.2 Allergy status to sulfonamides; Z88.0 Allergy status to penicillin; Z88.8 Allergy status to other drugs, medicaments and biological substances; Z88.5 Allergy status to narcotic agent; X58.XXXA Exposure to other specified factors, initial encounter
CPT/HCPCS: 99211

== ENCOUNTER → 2024-02-20 | Outpatient (CLI) | payer OTHER ==
[2024-02-20 13:17] VITALS: BP 131/86; PULSE 72; RESP 16
--- NOTE | 2024-02-20 14:15 | P.PAINPG ---
PQRS Measure Charge Sheet Comment: HISTORY OF PRESENT ILLNESS: A 58 yr old female presents today w severe and chronic jaw pain x 6 yrs secondary to mandible fracture and metal hardware for medication refills. Pt states pain level is provoked at 6 /10 in intensity, constant, localized in the jaw, crushing in character w shooting pain towards the chin. Pain is provoked by any movement. Pain is alleviated by medications, repositioning and rest. Pt states she is scheduled for jaw surgery next month in [place] by an oralmaxillofacial surgeon who has been made aware she has an established narcotic/ opiate agreement. Interventional procedures include Jaw Fixation (2017) Medications include Percocet 10/325mg #120, Neurontin 300mg #90 REVIEW OF ORGAN SYSTEMS: CONSTITUTIONAL: No fevers or chills. No recent weight loss. NEUROLOGICAL: + numbness and tingling along the distal extremities. No seizure disorders or headaches. MUSCULOSKELETAL: + pain PSYCHIATRIC: Denies current depression or suicidal thoughts. Physical Examinations : Constitutional : Cooperative , not in acute distress . Neurologic : Cranial nerve II to XII intact. No focal neurological deficits. Psychiatric : alert & oriented x 3. Matching mood & appropriate affect. Judgment & insight intact. Musculoskeletal : Cervical Spine Motor strength in the deltoid and biceps: Normal right side. Normal Left side Motor strength biceps and the wrist extensors: Normal right side . Normal left side Motor strength in the triceps muscle: Normal right side. Normal left side Deep tendon reflexes: Normal at the biceps. Normal at Brachioradialis. Normal at triceps Vertebral body tenderness to deep palpation over Cervical facet loading test: positive bilaterally Spurling test: positive bilaterally Neck distraction test: positive bilaterally Sulaiman sign: positive bilaterally Lumbar spine Motor strength lower extremities ,thigh and legs 5/5 Right side , 5/5 Left side Deep tendon reflexes : Normal Knee Jerk. Normal Ankle Jerk Vertebral body tenderness over Ahmadi Test positive Lumbar facet Loading Test: positive Right / positive Left Range of motion of the lumbar spine Flexion 30 degrees, extension 10 degrees Straight Leg Raise test: Left/ Right positive at degree Carolina test: positive right / positive left. Severe tenderness over the Sacroiliac joint on the Right / Left sides Gaenslen test: positive bilaterally Seated flexion test: positive bilaterally. 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 Percocet 10/325mg #120 w 1 RF. Use, side effects, adverse reactions and safe storage discussed. Opiate and narcotic agreement on file. UDS from 12/26/23 reviewed and consistent. All questions answered. I have spent greater than 30 minutes on patient care today. Dr Fritz was available by phone for the evaluation of this patient. The time was used to review the medical records including relevant urine studies and Prescription history (MAPs), review of the available imaging, evaluation and examination of the patient, coordination of care with the medical staff and if applicable referring physicians, as well as creation of the medical record - Pain Location Jaw Non-Pharmacological Interventions: Inactivity, Position/Reposition Pharmacological Interventions: PRN Medication, Scheduled Medication, Topical Medication PQRS Narrative: Smoking Status Current every day smoker Hx Alcohol Use (MH) No Home Medications: Ambulatory Orders Gabapentin [Neurontin] 600 mg PO HS 01/26/14 LORazepam [Ativan] 1 mg PO BID 08/15/16 Azithromycin [Zithromax Z-pack (6 tabs)] 0 mg PO DIRECTED #1 pack 04/12/17 Famotidine [Pepcid] 20 mg PO BID #28 tablet 04/12/17 hydrOXYzine HCL [Atarax] 25 mg PO TID PRN #15 tab 04/12/17 oxyCODONE-APAP 10-325MG [Percocet 10-325 mg] 1 tab PO Q6HR PRN 30 Days #120 tab 02/20/24 oxyCODONE-APAP 10-325MG [Percocet 10-325 mg] 1 tab PO QID PRN 30 Days #120 tab 02/20/24 Controlled Substance Measures - Controlled Substance Measures Is patient prescribed a controlled substance at discharge?: Yes When asked, does pt state using other controlled substances?: No If prescribed controlled substance>3 days was MAPS reviewed?: Yes
== END ==
LOC: PNWHC3 12:50
PROVIDERS: ATTEND Specialist
DX: M54.12 Radiculopathy, cervical region
CPT/HCPCS: 99211

== ENCOUNTER → 2024-04-16 | Outpatient (CLI) | payer OTHER ==
[2024-04-16 13:23] VITALS: BP 106/71; PULSE 77; RESP 18; TEMP 97.5
--- NOTE | 2024-04-16 14:56 | P.PAINPG ---
PQRS Measure Charge Sheet Comment: HISTORY OF PRESENT ILLNESS: A 58 yr old female w at side presents today w severe and chronic jaw pain x 6 yrs secondary to mandible fracture and metal hardware for medication refills. Pt states pain level is provoked at 6 /10 in intensity, constant, localized in the jaw, crushing in character w shooting pain towards the chin. Pain is provoked by any movement. Pain is alleviated by medications, repositioning and rest. Pt states she is scheduled for jaw surgery next month in [place] by an oralmaxillofacial surgeon who has been made aware she has an established narcotic/ opiate agreement. Interventional procedures include Jaw Fixation (2016), Jaw Surgery (Mar 2024) Medications include Percocet 10/325mg #120, Neurontin 300mg #90 REVIEW OF ORGAN SYSTEMS: CONSTITUTIONAL: No fevers or chills. No recent weight loss. NEUROLOGICAL: + numbness and tingling along the distal extremities. No seizure disorders or headaches. MUSCULOSKELETAL: + pain PSYCHIATRIC: Denies current depression or suicidal thoughts. Physical Examinations : Constitutional : Cooperative , not in acute distress . Neurologic : Cranial nerve II to XII intact. No focal neurological deficits. Psychiatric : alert & oriented x 3. Matching mood & appropriate affect. Judgment & insight intact. Musculoskeletal : Cervical Spine +Facial incisional scars intact Motor strength in the deltoid and biceps: Normal right side. Normal Left side Motor strength biceps and the wrist extensors: Normal right side . Normal left side Motor strength in the triceps muscle: Normal right side. Normal left side Deep tendon reflexes: Normal at the biceps. Normal at Brachioradialis. Normal at triceps Vertebral body tenderness to deep palpation over Cervical facet loading test: positive bilaterally Spurling test: positive bilaterally Neck distraction test: positive bilaterally Sulaiman sign: positive bilaterally Lumbar spine Motor strength lower extremities ,thigh and legs 5/5 Right side , 5/5 Left side Deep tendon reflexes : Normal Knee Jerk. Normal Ankle Jerk Vertebral body tenderness over Ahmadi Test positive Lumbar facet Loading Test: positive Right / positive Left Range of motion of the lumbar spine Flexion 30 degrees, extension 10 degrees Straight Leg Raise test: Left/ Right positive at degree Carolina test: positive right / positive left. Severe tenderness over the Sacroiliac joint on the Right / Left sides Gaenslen test: positive bilaterally Seated flexion test: positive bilaterally. 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 Percocet 10/325mg #120 to be filled 04/29/24. Per MAPS, pt has ample supply of oxycodone 5mg/5mL s/p corrective jaw surgery soln to last till 04/29/24. Use, side effects, adverse reactions and safe storage discussed. Opiate and narcotic agreement on file. UDS from 12/26/23 reviewed and consistent. All questions answered. I have spent greater than 30 minutes on patient care today. Dr Fritz was available by phone for the evaluation of this patient. The time was used to review the medical records including relevant urine studies and Prescription history (MAPs), review of the available imaging, evaluation and examination of the patient, coordination of care with the medical staff and if applicable referring physicians, as well as creation of the medical record PQRS Narrative: Smoking Status Current every day smoker Hx Alcohol Use (MH) No Home Medications: Ambulatory Orders Gabapentin [Neurontin] 600 mg PO HS 01/26/14 LORazepam [Ativan] 1 mg PO BID 08/15/16 Azithromycin [Zithromax Z-pack (6 tabs)] 0 mg PO DIRECTED #1 pack 04/12/17 Famotidine [Pepcid] 20 mg PO BID #28 tablet 04/12/17 hydrOXYzine HCL [Atarax] 25 mg PO TID PRN #15 tab 04/12/17 oxyCODONE-APAP 10-325MG [Percocet 10-325 mg] 1 tab PO QID PRN 30 Days #120 tab 04/16/24 Controlled Substance Measures - Controlled Substance Measures Is patient prescribed a controlled substance at discharge?: Yes When asked, does pt state using other controlled substances?: No If prescribed controlled substance>3 days was MAPS reviewed?: Yes
== END ==
LOC: PNWHC3 12:37
PROVIDERS: ATTEND Specialist
DX: M71.38 Other bursal cyst, other site (principal); R68.84 Jaw pain; T14.8XXA Other injury of unspecified body region, initial encounter; F17.200 Nicotine dependence, unspecified, uncomplicated; Z88.0 Allergy status to penicillin; Z88.8 Allergy status to other drugs, medicaments and biological substances; Z88.5 Allergy status to narcotic agent; Z88.2 Allergy status to sulfonamides
CPT/HCPCS: 99211

== ENCOUNTER → 2024-06-09 | Outpatient (CLI) | payer OTHER ==
--- NOTE | 2024-06-09 14:30 | CT ---
EXAMINATION TYPE: CT facial bones wo con DATE OF EXAM: 06/09/2024 2:15 PM COMPARISON: 10/07/2023, 08/28/2023.. 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 Coronal, axial and sagittal reformatted images were also provided in soft tissue and bone windows and submitted for interpretation. Additional 3-D reformatted images were obtained on a [employer] workstation. . Contrast used: mL of , (none if empty) Oral contrast used: (none if empty) CT DLP: 764.90 mGycm, Automated exposure control for dose reduction was used. FINDINGS: New interval surgical changes to the mandible with fixation hardware in place. There is inc reased surgical clips and surgical changes throughout the soft tissues. No enlarged lymph nodes withi n the visualized. No evidence for organizing fluid collection. There is incomplete osseous fusion of the mandible at the anterior corners of the bone grafts as well as the bone graft in need of jaw post eriorly bilaterally. No evidence for fracture or dislocation. Leftward nasal septum deviation. The orbital contents are unremarkable. The temporal-mandibular joints appear symmetric. The visualized portion of the paranasal sinuses appe ar clear. IMPRESSION: Interval postsurgical change with increased metallic surgical clips. New bone graft involving the man dible with incomplete fusion of the anterior corners and posterior aspect with the [place] jaw. [facility], , 06/09/2024 2:28 PM
== END | disposition home or self-care (01) ==
LOC: RADCTMAIN 13:46
PROVIDERS: ATTEND Otolaryngology
DX: Z87.39 Personal history of other diseases of the musculoskeletal system and connective tissue (principal)
CPT/HCPCS: 70486

== ENCOUNTER → 2024-06-18 | Outpatient (CLI) | payer OTHER ==
[2024-06-18 13:39] VITALS: BP 121/83; PULSE 90; RESP 16; TEMP 97.3
--- NOTE | 2024-06-18 15:10 | P.PAINPG ---
PQRS Measure Charge Sheet Comment: HISTORY OF PRESENT ILLNESS: A 59 yr old female presents today w severe and chronic jaw pain x 6 yrs secondary to mandible fracture and metal hardware for medication refills. Pt states pain level is provoked at 6 /10 in intensity, constant, localized in the jaw, crushing in character w shooting pain towards the chin. Pain is provoked by any movement. Pain is alleviated by medications, repositioning and rest. Pt completed jaw surgery a few months ago month in [place] by an oralmaxillofacial surgeon and had been prescribed short courses of narcotics. Interventional procedures include Jaw Fixation (2016), Jaw Surgery (Mar 2024) Medications include Percocet 10/325mg #120, Neurontin 300mg #90 REVIEW OF ORGAN SYSTEMS: CONSTITUTIONAL: No fevers or chills. No recent weight loss. NEUROLOGICAL: + numbness and tingling along the distal extremities. No seizure disorders or headaches. MUSCULOSKELETAL: + pain PSYCHIATRIC: Denies current depression or suicidal thoughts. Physical Examinations : Constitutional : Cooperative , not in acute distress . Neurologic : Cranial nerve II to XII intact. No focal neurological deficits. Psychiatric : alert & oriented x 3. Matching mood & appropriate affect. Judgment & insight intact. Musculoskeletal : Cervical Spine +Facial incisional scars intact Motor strength in the deltoid and biceps: Normal right side. Normal Left side Motor strength biceps and the wrist extensors: Normal right side . Normal left side Motor strength in the triceps muscle: Normal right side. Normal left side Deep tendon reflexes: Normal at the biceps. Normal at Brachioradialis. Normal at triceps Vertebral body tenderness to deep palpation over Cervical facet loading test: positive bilaterally Spurling test: positive bilaterally Neck distraction test: positive bilaterally Sulaiman sign: positive bilaterally Lumbar spine Motor strength lower extremities ,thigh and legs 5/5 Right side , 5/5 Left side Deep tendon reflexes : Normal Knee Jerk. Normal Ankle Jerk Vertebral body tenderness over Ahmadi Test positive Lumbar facet Loading Test: positive Right / positive Left Range of motion of the lumbar spine Flexion 30 degrees, extension 10 degrees Straight Leg Raise test: Left/ Right positive at degree Carolina test: positive right / positive left. Severe tenderness over the Sacroiliac joint on the Right / Left sides Gaenslen test: positive bilaterally Seated flexion test: positive bilaterally. 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 Percocet 10/325mg #120 w 1 RF. Use, side effects, adverse reactions and safe storage discussed. Opiate and narcotic agreement renewed 06/18/24. UDS collected 06/18/24. All questions answered. I have spent greater than 30 minutes on patient care today. Dr Fritz was available by phone for the evaluation of this patient. The time was used to review the medical records including relevant urine studies and Prescription history (MAPs), review of the available imaging, evaluation and examination of the patient, coordination of care with the medical staff and if applicable referring physicians, as well as creation of the medical record - Pain Location Bilateral Jaw Non-Pharmacological Interventions: Heat, Inactivity, Position/Reposition Pharmacological Interventions: PRN Medication, Scheduled Medication, Topical Medication PQRS Narrative: Smoking Status Current every day smoker Narcotic Agreement Date Signed 04/16/24 Hx Alcohol Use (MH) No Home Medications: Ambulatory Orders Gabapentin [Neurontin] 600 mg PO HS 01/26/14 LORazepam [Ativan] 1 mg PO BID 08/15/16 Azithromycin [Zithromax Z-pack (6 tabs)] 0 mg PO DIRECTED #1 pack 04/12/17 Famotidine [Pepcid] 20 mg PO BID #28 tablet 04/12/17 hydrOXYzine HCL [Atarax] 25 mg PO TID PRN #15 tab 04/12/17 oxyCODONE-APAP 10-325MG [Percocet 10-325 mg] 1 tab PO QID PRN 30 Days #120 tab 06/18/24 oxyCODONE-APAP 10-325MG [Percocet 10-325 mg] 1 tab PO QID PRN 30 Days #120 tab 06/18/24 Controlled Substance Measures - Controlled Substance Measures Is patient prescribed a controlled substance at discharge?: Yes When asked, does pt state using other controlled substances?: No If prescribed controlled substance>3 days was MAPS reviewed?: Yes If Rx opioid, was Start Talking consent form obtained?: Yes Was information provided regarding opioid addiction?: Yes
== END ==
LOC: PNWHC3 13:09
PROVIDERS: ATTEND Specialist
DX: S02.609K Fracture of mandible, unspecified, subsequent encounter for fracture with nonunion (principal); F17.210 Nicotine dependence, cigarettes, uncomplicated; Z88.0 Allergy status to penicillin; Z88.5 Allergy status to narcotic agent; Z88.2 Allergy status to sulfonamides; Z88.1 Allergy status to other antibiotic agents; X58.XXXA Exposure to other specified factors, initial encounter
CPT/HCPCS: 80307; G0463; 99211

== ENCOUNTER → 2024-08-13 | Outpatient (CLI) | payer OTHER ==
[2024-08-13 14:06] VITALS: BP 111/72; PULSE 81; RESP 16
--- NOTE | 2024-08-13 15:09 | P.PAINPG ---
Objective - Vital Signs Vital signs: Vital Signs Temp Pulse 81 08/13/24 14:04 Resp 16 08/13/24 14:04 BP 111/72 08/13/24 14:04 Pulse Ox 93 L 08/13/24 14:04 FiO2 Intake & Output 08/12/24 08/13/24 08/13/24 18:59 06:59 18:59 Weight 57.606 kg PQRS Measure Charge Sheet Mode of Arrival: Ambulatory Comment: HISTORY OF PRESENT ILLNESS: A 59 yr old female presents today w severe and chronic jaw pain > 6 yrs secondary to mandible fracture and metal hardware for medication refills. Pt states pain level is provoked at 7 /10 in intensity, constant, localized in the jaw, crushing in character w shooting pain towards the chin. Pain is provoked by any movement. Pain is alleviated by medications, repositioning and rest. Pt completed jaw surgery in 2023 at the [place] by an oralmaxillofacial surgeon and will follow up for a possible infection. Interventional procedures include Jaw Fixation (2016), Jaw Surgery (Mar 2024) Medications include Percocet 10/325mg #120, Neurontin 300mg #90 REVIEW OF ORGAN SYSTEMS: CONSTITUTIONAL: No fevers or chills. No recent weight loss. NEUROLOGICAL: + numbness and tingling along the distal extremities. No seizure disorders or headaches. MUSCULOSKELETAL: + pain PSYCHIATRIC: Denies current depression or suicidal thoughts. Physical Examinations : Constitutional : Cooperative , not in acute distress . Neurologic : Cranial nerve II to XII intact. No focal neurological deficits. Psychiatric : alert & oriented x 3. Matching mood & appropriate affect. Judgment & insight intact. Musculoskeletal : Cervical Spine +Facial incisional scars intact Motor strength in the deltoid and biceps: Normal right side. Normal Left side Motor strength biceps and the wrist extensors: Normal right side . Normal left side Motor strength in the triceps muscle: Normal right side. Normal left side Deep tendon reflexes: Normal at the biceps. Normal at Brachioradialis. Normal at triceps Vertebral body tenderness to deep palpation over Cervical facet loading test: positive bilaterally Spurling test: positive bilaterally Neck distraction test: positive bilaterally Sulaiman sign: positive bilaterally Lumbar spine Motor strength lower extremities ,thigh and legs 5/5 Right side , 5/5 Left side Deep tendon reflexes : Normal Knee Jerk. Normal Ankle Jerk Vertebral body tenderness over Ahmadi Test positive Lumbar facet Loading Test: positive Right / positive Left Range of motion of the lumbar spine Flexion 30 degrees, extension 10 degrees Straight Leg Raise test: Left/ Right positive at degree Carolina test: positive right / positive left. Severe tenderness over the Sacroiliac joint on the Right / Left sides Gaenslen test: positive bilaterally Seated flexion test: positive bilaterally. 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 Percocet 10/325mg #120 w 1 RF. Use, side effects, adverse reactions and safe storage discussed. Opiate and narcotic agreement renewed 06/18/24. UDS 06/18/24 reviewed and consistent. All questions answered. I have spent greater than 30 minutes on patient care today. Dr Fritz was available by phone for the evaluation of this patient. The time was used to review the medical records including relevant urine studies and Prescription history (MAPs), review of the available imaging, evaluation and examination of the patient, coordination of care with the medical staff and if applicable referring physicians, as well as creation of the medical record - Pain Location Bilateral Jaw Non-Pharmacological Interventions: Heat, Inactivity, Position/Reposition Pharmacological Interventions: PRN Medication, Scheduled Medication PQRS Narrative: Smoking Status Current every day smoker Narcotic Agreement Date Signed 06/18/24 Blood Pressure 111/72 Pain Intensity [Bilateral Jaw] 7 Scale Used Numeric (1 - 10) Hx Alcohol Use (MH) No Home Medications: Ambulatory Orders ALPRAZolam [Xanax] 0.25 mg PO BID PRN 07/11/24 Budesonide/Formoterol Fumarate [Symbicort 160-4.5 Mcg Inhaler] 2 puff INHALATION RT-BID 07/11/24 Cyclobenzaprine [Flexeril] 5 mg PO TID 07/11/24 Gabapentin 300 mg PO TID 07/11/24 Lactulose 10 gm PO BID PRN 07/11/24 Nicotine 21Mg/24Hr Patch [Habitrol] 1 patch TRANSDERM DAILY 07/11/24 QUEtiapine [SEROquel] 50 mg PO HS 07/11/24 Rosuvastatin Calcium [Crestor] 5 mg PO DAILY 07/11/24 SUMAtriptan succinate 50 mg PO BID PRN 07/11/24 Sennosides/Docusate Sodium [Senna-S 8.6-50 mg Tablet] 2 tab PO DAILY 07/11/24 Aspirin 81 mg PO DAILY #30 tab 07/14/24 Metoprolol Tartrate [Lopressor] 25 mg PO BID #60 tab 07/14/24 cefuroxime axetiL [Ceftin] 500 mg PO BID 10 Days #20 tab 07/14/24 metroNIDAZOLE [Flagyl] 500 mg PO TID 10 Days #30 tab 07/14/24 oxyCODONE-APAP 10-325MG [Percocet 10-325 mg] 1 tab PO QID PRN 30 Days #120 tab 08/13/24 oxyCODONE-APAP 10-325MG [Percocet 10-325 mg] 1 tab PO QID PRN 30 Days #120 tab 08/13/24 Controlled Substance Measures - Controlled Substance Measures Is patient prescribed a controlled substance at discharge?: Yes When asked, does pt state using other controlled substances?: No If prescribed controlled substance>3 days was MAPS reviewed?: Yes
== END ==
LOC: PNWHC3 13:47
PROVIDERS: ATTEND Specialist
DX: R68.84 Jaw pain (principal); F17.210 Nicotine dependence, cigarettes, uncomplicated; G89.29 Other chronic pain; Z96.698 Presence of other orthopedic joint implants; Z88.0 Allergy status to penicillin; Z88.1 Allergy status to other antibiotic agents; Z88.2 Allergy status to sulfonamides; Z88.5 Allergy status to narcotic agent
CPT/HCPCS: 99211

== ENCOUNTER 2024-10-10 13:16 | Emergency (ER) | payer OTHER ==
--- NOTE | 2024-10-10 14:02 | ED ---
General Adult HPI - General Source: patient, EMS, RN notes reviewed, old records reviewed Mode of arrival: EMS <Prem Tristan - Last Filed: 10/10/24 15:28> <Liz Sarabia - Last Filed: 10/10/24 19:03> - General Chief complaint: Altered Mental Status Stated complaint: AMS Time Seen by Provider: 10/10/24 13:20 - History of Present Illness Initial comments: This is a 59-year-old female who has had jaw surgery in the past and had a skin graft on the right leg. states this morning when he left she seemed to be doing all right but when he returned from a soccer game patient was very confused and continues to be altered from her baseline. Patient complains of pain in her right hip but did not fall or have any trauma. Patient has not had any recent fever chills. Patient did have diarrhea on Saturday and Saturday of this week but stopped after that. states she believes she is severely dehydrated and malnutrition because she does not eat or drink. (Prem Tristan) - Related Data Home Medications Medication Instructions Recorded Confirmed ALPRAZolam [Xanax] 0.25 mg PO BID PRN 07/11/24 07/11/24 Budesonide/Formoterol Fumarate 2 puff INHALATION RT-BID 07/11/24 07/11/24 [Symbicort 160-4.5 Mcg Inhaler] Cyclobenzaprine [Flexeril] 5 mg PO TID 07/11/24 07/11/24 Gabapentin 300 mg PO TID 07/11/24 07/11/24 Lactulose 10 gm PO BID PRN 07/11/24 07/11/24 Nicotine 21Mg/24Hr Patch [Habitrol] 1 patch TRANSDERM DAILY 07/11/24 07/11/24 QUEtiapine [SEROquel] 50 mg PO HS 07/11/24 07/11/24 Rosuvastatin Calcium [Crestor] 5 mg PO DAILY 07/11/24 07/11/24 SUMAtriptan succinate 50 mg PO BID PRN 07/11/24 07/11/24 Sennosides/Docusate Sodium 2 tab PO DAILY 07/11/24 07/11/24 [Senna-S 8.6-50 mg Tablet] Previous Rx's Medication Instructions Recorded Aspirin 81 mg PO DAILY #30 tab 07/14/24 Metoprolol Tartrate [Lopressor] 25 mg PO BID #60 tab 07/14/24 cefuroxime axetiL [Ceftin] 500 mg PO BID 10 Days #20 tab 07/14/24 metroNIDAZOLE [Flagyl] 500 mg PO TID 10 Days #30 tab 07/14/24 oxyCODONE-APAP 10-325MG [Percocet 1 tab PO QID PRN 30 Days #120 tab 08/13/24 10-325 mg] oxyCODONE-APAP 10-325MG [Percocet 1 tab PO QID PRN 30 Days #120 tab 08/13/24 10-325 mg] Allergies Allergy/AdvReac Type Severity Reaction Status Date / Time amoxicillin [From Augmentin] Allergy Anaphylaxis Verified 10/10/24 13:27 clavulanic acid Allergy Anaphylaxis Verified 10/10/24 13:27 [From Augmentin] hydromorphone [From Dilaudid] AdvReac Itching Verified 10/10/24 13:27 Sulfa (Sulfonamide AdvReac Vomiting Verified 10/10/24 13:27 Antibiotics) Review of Systems ROS Other: All systems not noted in ROS Statement are negative. <Prem Tristan - Last Filed: 10/10/24 15:28> ROS Other: All systems not noted in ROS Statement are negative. <Liz Sarabia - Last Filed: 10/10/24 19:03> ROS Statement: Those systems with pertinent positive or pertinent negative responses have been documented in the HPI. Past Medical History Past Medical History: Thyroid Disorder Additional Past Medical History / Comment(s): colitis,diverticulitis,meniers, osteomyelitis of mandible History of Any Multi-Drug Resistant Organisms: None Reported Past Surgical History: Back Surgery, Bowel Resection, Hernia Repair, Hysterectomy Additional Past Surgical History / Comment(s): Breast biopsy- neg, rt shoulder surgery, jaw surgery oct 24 Past Anesthesia/Blood Transfusion Reactions: No Reported Reaction Additional Past Anesthesia/Blood Transfusion Reaction / Comment(s): no bld transfusions in past Past Psychological History: Anxiety Smoking Status: Current every day smoker Past Alcohol Use History: None Reported Past Drug Use History: None Reported - Past Family History Mother Family Medical History: Cancer Additional Family Medical History / Comment(s): lymphoma <Prem Tristan - Last Filed: 10/10/24 15:28> General Exam <Prem Tristan - Last Filed: 10/10/24 15:28> - General Exam Comments Initial Comments: GENERAL: Patient is well-developed and well-nourished. Patient is nontoxic and well- hydrated and is in mild distress. ENT: Neck is soft and supple. No significant lymphadenopathy is noted. Oropharynx is clear. Moist mucous membranes. Neck has full range of motion without eliciting any pain. EYES: The sclera were anicteric and conjunctiva were pink and moist. Extraocular movements were intact and pupils were equal round and reactive to light. Eyelids were unremarkable. PULMONARY: Unlabored respirations. Good breath sounds bilaterally. No audible rales rhonchi or wheezing was noted. CARDIOVASCULAR: There is a regular rate and rhythm without any murmurs gallops or rubs. ABDOMEN: Soft and nontender with normal bowel sounds. SKIN: Skin is clear with no lesions or rashes and otherwise unremarkable. NEUROLOGIC: Patient is alert and oriented x 1. Cranial nerves II through XII are grossly intact. Motor and sensory are also intact. Normal speech, volume and content. Symmetrical smile. MUSCULOSKELETAL: Normal extremities with adequate strength and full range of motion. No lower extremity swelling or edema. No calf tenderness. I examined the hip I saw no area of redness or swelling. On palpation it did not appear to hurt. LYMPHATICS: No significant lymphadenopathy is noted PSYCHIATRIC: Normal psychiatric evaluation. (Prem Tristan) Course Vital Signs 10/10/24 10/10/24 13:19 14:19 Temperature 98.4 F Pulse Rate 97 Respiratory 20 20 Rate Blood Pressure 138/88 O2 Sat by Pulse 99 Oximetry Medical Decision Making - Lab Data Result diagrams: 10/10/24 14:08 10/10/24 14:08 <Prem Tristan - Last Filed: 10/10/24 15:28> - Lab Data Result diagrams: 10/10/24 14:08 10/10/24 14:08 <Liz Sarabia - Last Filed: 10/10/24 19:03> - Medical Decision Making EKG is interpreted by myself and EKG shows sinus rhythm at 93 bpm ND 140 QRS is 83 QT interval is 370 QTc is 09/13/2020. Patient's EKG shows no ST segment elevation or depression. Was pt. sent in by a medical professional or institution ([facility], [employer], urgent care, hospital, or retirement...) When possible be specific @ -[No] Did you speak to anyone other than the patient for history (EMS, parent, family, police, friend...)? What history was obtained from this source @ -[No] Did you review nursing and triage notes (agree or disagree)? Why? @ -[I reviewed and agree with nursing and triage notes] Were old charts reviewed (outside hosp., previous admission, EMS record, old EKG, old radiological studies, urgent care reports/EKG's, retirement records)? Report findings @ -[No old charts were reviewed] Differential Diagnosis? @ -Differential Altered Mental Status: Hypoglycemia, DKA, hypercapnia, ETOH, overdose, CO poisoning, trauma, myxedema coma, HTN encephalopathy, infection, encephalitis, psychosis, intercranial hemorrhage, hepatic encephalopathy, meningitis, CVA, this is not meant to be an all-inclusive list EKG interpreted by me (3pts min.). @ -[As above] X-rays interpreted by me (1pt min.). @ -[None done] CT interpreted by me (1pt min.). @ -[None done] U/S interpreted by me (1pt. min.). @ -[None done] What testing was considered but not performed or refused? (CT, X-rays, U/S, labs)? Why? @ -[None] What meds were considered but not given or refused? Why? @ -[None] Did you discuss the management of the patient with other professionals (shawn warren i.e. [facility], [employer], lab, RT, psych nurse, director of social media marketing, qual research manager, teacher, fire control officer, dependency case manager)? Give summary @ -[No] Was smoking cessation discussed for >3mins.? @ -[No] Was critical care preformed (if so, how long)? @ -[No] Were there social determinants of health that impacted care today? How? (Homelessness, low income, unemployed, alcoholism, drug addiction, transportation, low edu. Level, literacy, decrease access to med. care, fci, rehab)? @ -[No] Was there de-escalation of care discussed even if they declined (Discuss DNR or withdrawal of care, Hospice)? DNR status @ -[No] What co-morbidities impacted this encounter? (DM, HTN, Smoking, COPD, CAD, Cancer, CVA, ARF, Chemo, Hep., AIDS, mental health diagnosis, sleep apnea, morbid obesity)? @ -[None] Was patient admitted / discharged? Hospital course, mention meds given and route, prescriptions, significant lab abnormalities, going to OR and other pertinent info. @ -Dr. Sarabia will be taking over the care of this patient at 3 PM (Prem Tristan) Was pt. sent in by a medical professional or institution (, [place], [employer], urgent care, hospital, or retirement...) When possible be specific @ -No Did you speak to anyone other than the patient for history (EMS, parent, family, police, friend...)? What history was obtained from this source @ -Spoke with the daughter for history Did you review nursing and triage notes (agree or disagree)? Why? @ -I reviewed and agree with nursing and triage notes Were old charts reviewed (outside hosp., previous admission, EMS record, old EKG, old radiological studies, urgent care reports/EKG's, retirement records)? Report findings @ -I reviewed the patient's hospitalization record from July of this year where she was hospitalized for NSTEMI and altered mental status Differential Diagnosis (chest pain, altered mental status, abdominal pain women, abdominal pain men, vaginal bleeding, weakness, fever, dyspnea, syncope, headache, dizziness, GI bleed, back pain, seizure, CVA, palpatations, mental health, musculoskeletal)? @ -Differential Altered Mental Status: Hypoglycemia, DKA, hypercapnia, ETOH, overdose, CO poisoning, trauma, myxedema coma, HTN encephalopathy, infection, encephalitis, psychosis, intercranial hemorrhage, hepatic encephalopathy, meningitis, CVA, this is not meant to be an all-inclusive list EKG interpreted by me (3pts min.). @ -Please see previous physician's EKG X-rays interpreted by me (1pt min.). @ -Chest x-ray is negative and interpreted by me CT interpreted by me (1pt min.). @ -CT of the brain is negative and interpreted by me. CT of the abdomen shows cholelithiasis U/S interpreted by me (1pt. min.). @ -None done What testing was considered but not performed or refused? (CT, X-rays, U/S, labs)? Why? @ -Gallbladder ultrasound however patient requires transfer and therefore will defer to receiving hospital What meds were considered but not given or refused? Why? @ -None Did you discuss the management of the patient with other professionals (professionals i.e. Dr., PA, [employer], lab, RT, psych nurse, director of social media marketing, qual research manager, teacher, fire control officer, dependency case manager)? Give summary @ -Spoke with Dr. Leiva as he is the GI doctor at [facility] Was smoking cessation discussed for >3mins.? @ -No Was critical care preformed (if so, how long)? @ -Yes, 35 minutes for management of multiple medical conditions with concern for end organ damage Were there social determinants of health that impacted care today? How? (Homelessness, low income, unemployed, alcoholism, drug addiction, transportation, low edu. Level, literacy, decrease access to med. care, fci, rehab)? @ -No Was there de-escalation of care discussed even if they declined (Discuss DNR or withdrawal of care, Hospice)? DNR status @ -No What co-morbidities impacted this encounter? (DM, HTN, Smoking, COPD, CAD, Cancer, CVA, ARF, Chemo, Hep., AIDS, mental health diagnosis, sleep apnea, morbid obesity)? @ -Osteonecrosis of the jaw Was patient admitted / discharged? Hospital course, mention meds given and route, prescriptions, significant lab abnormalities, going to OR and other pertinent info. @ -Upon arrival patient seen and evaluated in bed [address] Tristan. He did order laboratory studies, chest x-ray and a CT of the brain. Testing was performed and patient does have significant elevation in her troponin, liver enzymes and kidney function. She was given a 2 L bolus of normal saline. Hepatitis panel was ordered. CT without contrast was added due to the patient's poor kidney function which demonstrated cholelithiasis. We do not have GI services at our facility and therefore patient must be transferred. There is also concern of infection at the patient's surgical graft site as she does have inflammation of the right ear. She does follow with Dr. Manning at [facility]. The daughter does agree to have the patient transferred to [facility] for ENT services and possibly for GI. Patient was given a Percocet for pain control as well as Benadryl. Cefepime and Flagyl are started for the infection of the patient's right ear as well as to cover for any cholecystitis. I spoke with Dr. Leiva who does agree that he will see the patient for her elevated liver enzymes. Transfer center states that I do not need to speak to Dr. Carrasco. ER will be made aware by the transfer center. COBRA forms are signed and patient is transferred in stable condition Undiagnosed new problem with uncertain prognosis? @ -No Drug Therapy requiring intensive monitoring for toxicity (Heparin, Nitro, Insulin, Cardizem)? @ -No Were any procedures done? @ -No Diagnosis/symptom? @ -Acute encephalopathy, right ear cellulitis/perichondritis, history of osteonecrosis with mandible reconstruction, transaminitis, cholelithiasis, NSTEMI, JORGE Acute, or Chronic, or Acute on Chronic? @ -Acute Uncomplicated (without systemic symptoms) or Complicated (systemic symptoms)? @ -Complicated Side effects of treatment? @ -No Exacerbation, Progression, or Severe Exacerbation? @ -No Poses a threat to life or bodily function? How? (Chest pain, [place], [place], pneumonia, PE, COPD, DKA, ARF, appy, cholecystitis, CVA, Diverticulitis, Homicidal, Suicidal, threat to staff... and all critical care pts) @ -No (Liz Sarabia) - Lab Data Lab Results 10/10/24 10/10/24 10/10/24 Range/Units 14:08 14:08 14:08 WBC 7.41 (4.50-10.00) 10*3/uL RBC 4.11 (4.10-5.20) 10*6/uL Hgb 13.2 (12.0-15.0) g/dL Hct 40.3 (37.2-46.3) % MCV 98.1 H (80.0-97.0) fL MCH 32.1 H (27.0-32.0) pg MCHC 32.8 (32.0-37.0) g/dL Plt Count 105 L (140-440) 10*3/uL MPV 11.7 (9.5-12.2) fL Immature Gran % (Auto) 1.2 % Neutrophils % 75.3 % Lymphocytes % 14.8 % Monocytes % 8.4 % Eosinophils % 0.0 % Basophils % 0.3 % Immature Gran # 0.09 H (0.00-0.04) 10*3/uL Neutrophils # 5.58 (1.80-7.70) 10*3/uL Lymphocytes # 1.10 (0.90-5.00) 10*3/uL Monocytes # 0.62 (0.20-1.00) 10*3/uL Eosinophils # 0.00 L (0.04-0.35) 10*3/uL Basophils # 0.02 (0.00-0.10) 10*3/uL Immature Plt Fraction 8.9 H (1.1-6.1) % PT (10.0-12.5) sec INR (<1.2) APTT (22.0-30.0) sec Sodium 137 (137-145) mmol/L Potassium 5.5 H (3.5-5.1) mmol/L Chloride 100 (98-107) mmol/L Carbon Dioxide 31 H (22-30) mmol/L Anion Gap 6 mmol/L BUN 26 H (7-17) mg/dL Creatinine 1.69 H (0.52-1.04) mg/dL Est GFR (CKD-EPI)AfAm 38 (>60 ml/min/1.73 sqM) Est GFR (CKD-EPI)NonAf 33 (>60 ml/min/1.73 sqM) Glucose 112 H (74-99) mg/dL POC Glucose (mg/dL) (70-110) mg/dL POC Glu Heavy Lift Rigger ID Calcium 8.6 (8.4-10.2) mg/dL Total Bilirubin 0.4 (0.2-1.3) mg/dL AST 1141 H (14-36) U/L ALT 905 H (4-34) U/L Alkaline Phosphatase 95 (38-126) U/L Ammonia (<30) umol/L Troponin I 0.997 H* (0.000-0.034) ng/mL Total Protein 5.8 L (6.3-8.2) g/dL Albumin 3.5 (3.5-5.0) g/dL Urine Color Urine Appearance (Clear) Urine pH (5.0-8.0) Ur Specific Poca (1.001-1.035) Urine Protein (Negative) Urine Glucose (UA) (Negative) Urine Ketones (Negative) Urine Blood (Negative) Urine Nitrite (Negative) Urine Bilirubin (Negative) Urine Urobilinogen (<2.0) mg/dL Ur Leukocyte Esterase (Negative) Urine RBC (0-5) /hpf Urine WBC (0-5) /hpf Ur Squamous Epith Cells (0-4) /hpf Urine Bacteria (None) /hpf Hyaline Casts (0-2) /lpf Urine Mucus (None) /hpf Urine Opiates Screen (NotDetected) Ur Oxycodone Screen (NotDetected) Urine Methadone Screen (NotDetected) Ur Barbiturates Screen (NotDetected) U Tricyclic Antidepress (NotDetected) Ur Phencyclidine Scrn (NotDetected) Ur Amphetamines Screen (NotDetected) U Methamphetamines Scrn (NotDetected) U Benzodiazepines Scrn (NotDetected) Urine Cocaine Screen (NotDetected) U Marijuana (THC) Screen (NotDetected) 10/10/24 10/10/24 10/10/24 Range/Units 14:08 14:41 14:56 WBC (4.50-10.00) 10*3/uL RBC (4.10-5.20) 10*6/uL Hgb (12.0-15.0) g/dL Hct (37.2-46.3) % MCV (80.0-97.0) fL MCH (27.0-32.0) pg MCHC (32.0-37.0) g/dL Plt Count (140-440) 10*3/uL MPV (9.5-12.2) fL Immature Gran % (Auto) % Neutrophils % % Lymphocytes % % Monocytes % % Eosinophils % % Basophils % % Immature Gran # (0.00-0.04) 10*3/uL Neutrophils # (1.80-7.70) 10*3/uL Lymphocytes # (0.90-5.00) 10*3/uL Monocytes # (0.20-1.00) 10*3/uL Eosinophils # (0.04-0.35) 10*3/uL Basophils # (0.00-0.10) 10*3/uL Immature Plt Fraction (1.1-6.1) % PT 10.9 (10.0-12.5) sec INR 1.0 (<1.2) APTT 21.4 L (22.0-30.0) sec Sodium (137-145) mmol/L Potassium (3.5-5.1) mmol/L Chloride (98-107) mmol/L Carbon Dioxide (22-30) mmol/L Anion Gap mmol/L BUN (7-17) mg/dL Creatinine (0.52-1.04) mg/dL Est GFR (CKD-EPI)AfAm (>60 ml/min/1.73 sqM) Est GFR (CKD-EPI)NonAf (>60 ml/min/1.73 sqM) Glucose (74-99) mg/dL POC Glucose (mg/dL) 114 H (70-110) mg/dL POC Glu Heavy Lift Rigger ID Pilo Bullock Calcium (8.4-10.2) mg/dL Total Bilirubin (0.2-1.3) mg/dL AST (14-36) U/L ALT (4-34) U/L Alkaline Phosphatase (38-126) U/L Ammonia (<30) umol/L Troponin I (0.000-0.034) ng/mL Total Protein (6.3-8.2) g/dL Albumin (3.5-5.0) g/dL Urine Color Yellow Urine Appearance Cloudy H (Clear) Urine pH 5.5 (5.0-8.0) Ur Specific Poca 1.017 (1.001-1.035) Urine Protein 1+ H (Negative) Urine Glucose (UA) Negative (Negative) Urine Ketones Negative (Negative) Urine Blood Large H (Negative) Urine Nitrite Negative (Negative) Urine Bilirubin Negative (Negative) Urine Urobilinogen <2.0 (<2.0) mg/dL Ur Leukocyte Esterase Moderate H (Negative) Urine RBC 9 H (0-5) /hpf Urine WBC 19 H (0-5) /hpf Ur Squamous Epith Cells 15 H (0-4) /hpf Urine Bacteria Occasional H (None) /hpf Hyaline Casts 39 H (0-2) /lpf Urine Mucus Few H (None) /hpf Urine Opiates Screen Not Detected (NotDetected) Ur Oxycodone Screen Detected H (NotDetected) Urine Methadone Screen Not Detected (NotDetected) Ur Barbiturates Screen Not Detected (NotDetected) U Tricyclic Antidepress Detected H (NotDetected) Ur Phencyclidine Scrn Not Detected (NotDetected) Ur Amphetamines Screen Not Detected (NotDetected) U Methamphetamines Scrn Not Detected (NotDetected) U Benzodiazepines Scrn Detected H (NotDetected) Urine Cocaine Screen Not Detected (NotDetected) U Marijuana (THC) Screen Not Detected (NotDetected) 10/10/24 Range/Units 16:01 WBC (4.50-10.00) 10*3/uL RBC (4.10-5.20) 10*6/uL Hgb (12.0-15.0) g/dL Hct (37.2-46.3) % MCV (80.0-97.0) fL MCH (27.0-32.0) pg MCHC (32.0-37.0) g/dL Plt Count (140-440) 10*3/uL MPV (9.5-12.2) fL Immature Gran % (Auto) % Neutrophils % % Lymphocytes % % Monocytes % % Eosinophils % % Basophils % % Immature Gran # (0.00-0.04) 10*3/uL Neutrophils # (1.80-7.70) 10*3/uL Lymphocytes # (0.90-5.00) 10*3/uL Monocytes # (0.20-1.00) 10*3/uL Eosinophils # (0.04-0.35) 10*3/uL Basophils # (0.00-0.10) 10*3/uL Immature Plt Fraction (1.1-6.1) % PT (10.0-12.5) sec INR (<1.2) APTT (22.0-30.0) sec Sodium (137-145) mmol/L Potassium (3.5-5.1) mmol/L Chloride (98-107) mmol/L Carbon Dioxide (22-30) mmol/L Anion Gap mmol/L BUN (7-17) mg/dL Creatinine (0.52-1.04) mg/dL Est GFR (CKD-EPI)AfAm (>60 ml/min/1.73 sqM) Est GFR (CKD-EPI)NonAf (>60 ml/min/1.73 sqM) Glucose (74-99) mg/dL POC Glucose (mg/dL) (70-110) mg/dL POC Glu Heavy Lift Rigger ID Calcium (8.4-10.2) mg/dL Total Bilirubin (0.2-1.3) mg/dL AST (14-36) U/L ALT (4-34) U/L Alkaline Phosphatase (38-126) U/L Ammonia <9 (<30) umol/L Troponin I (0.000-0.034) ng/mL Total Protein (6.3-8.2) g/dL Albumin (3.5-5.0) g/dL Urine Color Urine Appearance (Clear) Urine pH (5.0-8.0) Ur Specific Poca (1.001-1.035) Urine Protein (Negative) Urine Glucose (UA) (Negative) Urine Ketones (Negative) Urine Blood (Negative) Urine Nitrite (Negative) Urine Bilirubin (Negative) Urine Urobilinogen (<2.0) mg/dL Ur Leukocyte Esterase (Negative) Urine RBC (0-5) /hpf Urine WBC (0-5) /hpf Ur Squamous Epith Cells (0-4) /hpf Urine Bacteria (None) /hpf Hyaline Casts (0-2) /lpf Urine Mucus (None) /hpf Urine Opiates Screen (NotDetected) Ur Oxycodone Screen (NotDetected) Urine Methadone Screen (NotDetected) Ur Barbiturates Screen (NotDetected) U Tricyclic Antidepress (NotDetected) Ur Phencyclidine Scrn (NotDetected) Ur Amphetamines Screen (NotDetected) U Methamphetamines Scrn (NotDetected) U Benzodiazepines Scrn (NotDetected) Urine Cocaine Screen (NotDetected) U Marijuana (THC) Screen (NotDetected) Disposition <Prem Tristan - Last Filed: 10/10/24 15:28> Is patient prescribed a controlled substance at d/c from ED?: No Time of Disposition: 19:03 - Out of Hospital Transfer - Req. Specs Out of Hospital Transfer - Requested Specifics: Other Emergency Center ([facility]) <Liz Sarabia - Last Filed: 10/10/24 19:03> Clinical Impression: NSTEMI (non-ST elevated myocardial infarction), JORGE (acute kidney injury), High transaminase levels, Perichondritis, Acute encephalopathy Disposition: OTHER INSTITUTION NOT DEFINED Condition: Serious Referrals: Bhupinder Santana MD [Primary Care Provider] - 1-2 days
[2024-10-10] MEDS: SODIUM CHLORIDE 0.9% 1,000 ML IV ONE (14:17)
[2024-10-10 14:18] LABS: Basophils # (A) 0.02 10*3/uL (0.00-0.10); Basophils % (A) 0.3 %; HCT 40.3 % (37.2-46.3); HGB 13.2 g/dL (12.0-15.0); Immature Platelet Fraction 8.9 % (1.1-6.1); Lymphocytes % (A) 14.8 %; MCH 32.1 pg (27.0-32.0); MCHC 32.8 g/dL (32.0-37.0); MCV 98.1 fL (80.0-97.0); Mean Platelet Volume 11.7 fL (9.5-12.2); Monocytes # (A) 0.62 10*3/uL (0.20-1.00); Monocytes % (A) 8.4 %; Neutrophils # (A) 5.58 10*3/uL (1.80-7.70); Neutrophils % (A) 75.3 %; Platelet Count 105 10*3/uL (140-440); RBC 4.11 10*6/uL (4.10-5.20); RDW 15.6 % (11.5-14.5); WBC 7.41 10*3/uL (4.50-10.00)
[2024-10-10] MEDS: NALOXONE 0.4 MG/ML 1 ML VIAL IVP STA (14:19)
[2024-10-10] MEDS: SODIUM CHLORIDE 0.9% 500 ML 500 ML IV ONE ×2 (14:24→16:02)
--- NOTE | 2024-10-10 14:43 | XR ---
EXAMINATION TYPE: XR chest 2V DATE OF EXAM: 10/10/2024 2:39 PM COMPARISON: 07/11/2024 CLINICAL INDICATION: Female, 59 years old with history of altered mental status: Shortness of breath TECHNIQUE: XR chest 2V views of the chest are obtained. FINDINGS: Scattered senescent parenchymal changes noted. Hyperinflation compatible with COPD. No evidence for infiltrate. No evidence for atelectasis. Heart size is stable. Mediastinal structures are stable and grossly unremarkable. No evidence for hilar prominence. Degenerative changes dorsal spine. IMPRESSION: 1. No evidence for acute pulmonary disease. [facility], , 10/10/2024 2:40 PM
[2024-10-10 14:44] LABS: Glucose,Whole Blood 114 mg/dL (70-110)
[2024-10-10 14:53] LABS: African American GFR (CKD) 38 (>60 ml/min/1.73 sqM); Albumin 3.5 g/dL (3.5-5.0); Alkaline Phosphatase 95 U/L (38-126); Anion Gap 6 mmol/L; Blood Urea Nitrogen 26 mg/dL (7-17); Calcium 8.6 mg/dL (8.4-10.2); Carbon Dioxide 31 mmol/L (22-30); Chloride 100 mmol/L (98-107); Glucose 112 mg/dL (74-99); Non-African American GFR(CKD) 33 (>60 ml/min/1.73 sqM); Potassium 5.5 mmol/L (3.5-5.1); Sodium 137 mmol/L (137-145); Total Bilirubin 0.4 mg/dL (0.2-1.3); Total Protein 5.8 g/dL (6.3-8.2)
[2024-10-10 15:10] LABS: ALT 905 U/L (4-34); AST 1141 U/L (14-36)
[2024-10-10 15:11] LABS: Appearance,Urine Cloudy (Clear); Bacteria,Urine Occasional /hpf; Bilirubin,Urine Negative (Negative); Blood,Urine Large (Negative); Color,Urine Yellow; Glucose,Urine (UA) Negative (Negative); Hyaline Casts,Urine 39 /lpf (0-2); Ketones,Urine Negative (Negative); Leukocyte Esterase,Urine Moderate (Negative); Mucus,Urine Few /hpf; Nitrite,Urine Negative (Negative); PH, Urine 5.5 (5.0-8.0); Protein,Urine 1+ (Negative); RBC,Urine 9 /hpf (0-5); Specific Gravity,Urine 1.017 (1.001-1.035); Squamous Epithelial Cell,Urine 15 /hpf (0-4); Urobilinogen,Urine <2.0 mg/dL (<2.0); WBC,Urine 19 /hpf (0-5)
[2024-10-10 15:21] LABS: Amphetamine Screen,Urine Not Detected (NotDetected); Barbiturate Screen,Urine Not Detected (NotDetected); Benzodiazepines Screen,Urine Detected (NotDetected); Cocaine Screen,Urine Not Detected (NotDetected); Methadone Screen, Urine Not Detected (NotDetected); Opiate Screen,Urine Not Detected (NotDetected); Oxycodone Screen, Urine Detected (NotDetected); Phencyclidine Screen,Urine Not Detected (NotDetected); Tricyclic Antidepressant,Urine Detected (NotDetected); Urn Cannabinoid Scrn Not Detected (NotDetected)
--- NOTE | 2024-10-10 15:33 | CT ---
EXAMINATION TYPE: CT brain wo con DATE OF EXAM: 10/10/2024 COMPARISON: 07/11/2024 CLINICAL INDICATION: Female, 59 years old with history of Altered mental status; PHH, AMS. Pt uncoope rative, best possible images. TECHNIQUE: CT of the brain performed without contrast with sagittal and coronal reformats. CT DLP: 1637.[address] CTDI: mGy Automated exposure control for dose reduction was used. FINDINGS: There is no acute intracranial hemorrhage, mass effect, or midline shift identified. The ventricles and sulci are within normal limits in size. The globes are intact and the visualized sinuses are nitish ar. IMPRESSION: No acute intracranial hemorrhage, mass effect, or midline shift is seen. [facility], , 10/10/2024 3:31 PM
[2024-10-10 16:32] LABS: Prothrombin Time 10.9 sec (10.0-12.5)
[2024-10-10 16:38] LABS: Partial Thromboplastin Time 21.4 sec (22.0-30.0)
--- NOTE | 2024-10-10 16:40 | CT ---
EXAMINATION TYPE: CT abdomen pelvis wo con DATE OF EXAM: 10/10/2024 4:32 PM COMPARISON: None. CLINICAL INDICATION: Female, 59 years old with history of elevated liver enzymes, Elevated liver enzy mes. Pt uncooperative due to AMS. TECHNIQUE: Axial images with sagittal coronal reformats. Examination of the solid and hollow viscera is limited given the lack of contrast. CT DLP: 460.8 mGycm, Automated exposure control for dose reduction was used. FINDINGS: LUNG BASES: No evidence for nodule. No evidence for infiltrate. LIVER/GB: Cholelithiasis with contracted gallbladder. No space-occupying hepatic lesion. No evidence for intrahepatic biliary ductal dilatation. PANCREAS: No pancreatic mass identified. No inflammatory process seen. SPLEEN: No evidence for splenomegaly. No intrasplenic lesions seen. ADRENALS: No adrenal nodules identified. No evidence for thickening. KIDNEYS: No evidence for renal mass. No nephrolithiasis. No hydronephrosis. BOWEL: Appendix has a normal appearance. No evidence of bowel obstruction. No inflammatory process. R ings of sutures about the left hemicolon. Lymph nodes: No evidence for adenopathy greater than 1 cm. Abdominal aorta: Atheromatous changes seen. No evidence for aneurysm. Genital organs: No significant abnormality. Other: Postoperative changes of lumbar laminectomy and fusion. IMPRESSION: 1.Cholelithiasis with contracted gallbladder. 2. No acute intra-abdominal process seen. [facility], , 10/10/2024 4:38 PM
[2024-10-10] MEDS: metroNIDAZOLE-NS PMX 500 MG in SALINE 1 100ML.BAG IVPB STA (17:29)
[2024-10-10] MEDS: oxyCODONE-APAP 10-325MG 1 EACH TAB PO STA (18:44)
[2024-10-10] MEDS: diphenhydrAMINE 50 MG/ML 1 ML VIAL IVP STA (18:46)
[2024-10-10 19:30] VITALS: RESP 18
[2024-10-10 19:31] VITALS: BP 126/81; PULSE 96; TEMP 98.2
[2024-10-11 09:28] LABS: Hepatitis A Antibody IgM Nonreactive (Nonreactive); Hepatitis B Core IgM Nonreactive (Nonreactive); Hepatitis B Surface Antigen Nonreactive (Nonreactive); Hepatitis C IgG Antibody Nonreactive (Nonreactive)
== END 2024-10-10 19:31 | disposition other institution (70) ==
LOC: EC 13:16
DX: I21.4 Non-ST elevation (NSTEMI) myocardial infarction (principal); N17.9 Acute kidney failure, unspecified; G93.40 Encephalopathy, unspecified; R74.01 Elevation of levels of liver transaminase levels; H61.001 Unspecified perichondritis of right external ear; F17.200 Nicotine dependence, unspecified, uncomplicated; Z88.1 Allergy status to other antibiotic agents; Z88.0 Allergy status to penicillin; Z88.2 Allergy status to sulfonamides; Z88.5 Allergy status to narcotic agent
CPT/HCPCS: 36415; 93005; 80053; 80074; 82140; 84484; 85025; 85610; 85730; 81001; 87040; 80306; 71046; 70450; 74176; 99285; 96365; 96366; 96375; 96361; J1200; J2310; J0692; J1836

== ENCOUNTER → 2024-10-21 | Outpatient (CLI) | payer OTHER ==
[2024-10-21 12:40] VITALS: BP 105/70; PULSE 72; RESP 17
--- NOTE | 2024-10-21 15:57 | P.PAINPG ---
PQRS Measure Charge Sheet Comment: HISTORY OF PRESENT ILLNESS: A 59 yr old female presents today w severe and chronic jaw pain > 6 yrs secondary to mandible fracture and metal hardware for medication refills. Pt states pain level is provoked at 8 /10 in intensity, constant, localized in the jaw, crushing in character w shooting pain towards the chin. Pain is provoked by any movement. Pain is alleviated by medications, repositioning and rest. LFTs continuously elevated so will switch Percocet 10/325mg to Oxycodone IR. Pt was hospitalized w a URI and received Guaifensen-Codeine on 09/15/24 upon discharge. Interventional procedures include Jaw Fixation (2016), Jaw Surgery (Mar 2024) Medications include Percocet 10/325mg #120, Neurontin 300mg #90 REVIEW OF ORGAN SYSTEMS: CONSTITUTIONAL: No fevers or chills. No recent weight loss. NEUROLOGICAL: + numbness and tingling along the distal extremities. No seizure disorders or headaches. MUSCULOSKELETAL: + pain PSYCHIATRIC: Denies current depression or suicidal thoughts. Physical Examinations : Constitutional : Cooperative , not in acute distress . Neurologic : Cranial nerve II to XII intact. No focal neurological deficits. Psychiatric : alert & oriented x 3. Matching mood & appropriate affect. Judgment & insight intact. Musculoskeletal : Cervical Spine +Facial incisional scars intact Motor strength in the deltoid and biceps: Normal right side. Normal Left side Motor strength biceps and the wrist extensors: Normal right side . Normal left side Motor strength in the triceps muscle: Normal right side. Normal left side Deep tendon reflexes: Normal at the biceps. Normal at Brachioradialis. Normal at triceps Vertebral body tenderness to deep palpation over Cervical facet loading test: positive bilaterally Spurling test: positive bilaterally Neck distraction test: positive bilaterally Sulaiman sign: positive bilaterally Lumbar spine Motor strength lower extremities ,thigh and legs 5/5 Right side , 5/5 Left side Deep tendon reflexes : Normal Knee Jerk. Normal Ankle Jerk Vertebral body tenderness over Ahmadi Test positive Lumbar facet Loading Test: positive Right / positive Left Range of motion of the lumbar spine Flexion 30 degrees, extension 10 degrees Straight Leg Raise test: Left/ Right positive at degree Carolina test: positive right / positive left. Severe tenderness over the Sacroiliac joint on the Right / Left sides Gaenslen test: positive bilaterally Seated flexion test: positive bilaterally. 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 Oxycodone IR 10mg #90 w RF. Discontinue Percocet 10/325mg #120 w 1 RF. Use, side effects, adverse reactions and safe storage discussed. Opiate and narcotic agreement renewed 10/21/24. UDS 06/18/24 reviewed and consistent. All questions answered. I have spent greater than 30 minutes on patient care today. Dr Fritz was available by phone for the evaluation of this patient. The time was used to review the medical records including relevant urine studies and Prescription history (MAPs), review of the available imaging, evaluation and examination of the patient, coordination of care with the medical staff and if applicable referring physicians, as well as creation of the medical record - Pain Location Jaw Pharmacological Interventions: Medication PQRS Narrative: Smoking Status Current every day smoker Narcotic Agreement Date Signed 06/18/24 Hx Alcohol Use (MH) No Home Medications: Ambulatory Orders Budesonide/Formoterol Fumarate [Symbicort 160-4.5 Mcg Inhaler] 2 puff INHALATION RT-BID PRN 07/11/24 Cyclobenzaprine [Flexeril] 5 mg PO TID 07/11/24 Gabapentin 300 mg PO TID 07/11/24 QUEtiapine [SEROquel] 50 mg PO HS 07/11/24 Rosuvastatin Calcium [Crestor] 5 mg PO HS 07/11/24 SUMAtriptan succinate 50 mg PO BID PRN 07/11/24 Sennosides/Docusate Sodium [Senna-S 8.6-50 mg Tablet] 1 tab PO BID PRN 07/11/24 Aspirin 81 mg PO DAILY #30 tab 07/14/24 Calcium Carbonate [Calcium] 600 mg PO DAILY 10/10/24 Cholecalciferol [Vitamin D3 (25 Mcg = 1000 Iu)] 25 mcg PO DAILY 10/10/24 Metoprolol Tartrate [Lopressor] 25 mg PO DAILY 10/10/24 oxyCODONE HCL [Oxycodone HCl] 10 mg PO TID PRN 30 Days #90 tab 10/21/24 oxyCODONE HCL [oxyCODONE HCL (IR)] 10 mg PO TID PRN 30 Days #90 tab 10/21/24 Controlled Substance Measures - Controlled Substance Measures Is patient prescribed a controlled substance at discharge?: Yes When asked, does pt state using other controlled substances?: Yes If prescribed controlled substance>3 days was MAPS reviewed?: Yes If Rx opioid, was Start Talking consent form obtained?: Yes Was information provided regarding opioid addiction?: Yes
== END ==
LOC: PNWHC3 12:12
PROVIDERS: ATTEND Specialist
DX: S02.609A Fracture of mandible, unspecified, initial encounter for closed fracture (principal); X58.XXXA Exposure to other specified factors, initial encounter; F17.200 Nicotine dependence, unspecified, uncomplicated; Z88.1 Allergy status to other antibiotic agents; Z88.2 Allergy status to sulfonamides; Z88.5 Allergy status to narcotic agent; Z88.8 Allergy status to other drugs, medicaments and biological substances; Z98.890 Other specified postprocedural states
CPT/HCPCS: 99212